=== PATIENT | male | born 1960 | race Caucasian/White ===

== ENCOUNTER 2019-12-23 08:18 | Emergency (ER) | payer BC, SELFPAY ==
--- NOTE | 2019-12-23 08:25 | ED.ALLEREA ---
HPI - Allergic Reaction General Chief complaint: Skin/Abscess/Foreign Body Stated complaint: allergic reaction Time Seen by Provider: 12/23/19 08:33 Source: patient and RN notes reviewed Mode of arrival: ambulatory Limitations: no limitations History of Present Illness HPI narrative: 59-year-old male presents with concern for itching, facial itching, facial swelling that started 3 days ago. Reports scattered rash. Reports he was clearing weeds on and the rash started after that. Reports she has had a history of reaction to poison emilia. He denies any lip swelling, tongue swelling, difficulty swallowing, difficulty breathing, nausea, vomiting, diarrhea, fever. Reports his eyes are very itchy, denies drainage. Reports taking Benadryl 50 mg every 4-6 hours with no relief MD complaint: other (Pruritus) Related Data Home Medications Medication Instructions Recorded Confirmed aspirin 81 mg tablet,delayed 81 mg PO DAILY 04/12/19 09/24/19 release cyanocobalamin (vitamin B-12) 2,500 mcg PO DAILY 04/12/19 09/24/19 2,500 mcg tablet Allergies Allergy/AdvReac Type Severity Reaction Status Date / Time No Known Allergies Allergy Unverified 02/28/14 09:45 Review of Systems Review of Systems: Narrative: CONSTITUTIONAL: Denies malaise, chills, sweats, or fever. EYES: Denies visual changes, redness, or discharge. Reports itchy eyes ENT: Denies swollen tongue, lips, difficulty swallowing CARDIOVASCULAR: Denies chest pain, palpitations, or edema. RESPIRATORY: Denies cough or dyspnea. GASTROINTESTINAL: Denies abdominal pain, nausea, vomiting, diarrhea SKIN: Reports generalized itching, facial itching, eye itching, facial swelling, scattered patches of rash MUSCULOSKELETAL: Denies myalgia. All systems reviewed & are unremarkable except as noted in HPI and below PMFSH Past Medical History Medical History (Updated 12/23/19 @ 08:42 by Lindsey Avalos NP) Encounter for prostate cancer screening Encounter for wellness examination in adult Family History Family History (Updated 10/19/18 @ 08:17 by DOCTOR UNKNOWN) Father Diabetes mellitus, Onset Age: 79 Mother Hypertension Family history of kidney disease Family history of chronic obstructive pulmonary disease, Onset Age: 70 Social History Social History Smoking status: Never smoker Alcohol intake: never Comments At time of signature, agree with nursing past medical, surgical, social and family history. There is no relevant family history pertinent to the presenting complaint Exam Narrative: Exam Narrative: GENERAL: Well-appearing, well-nourished, and in no acute distress. HEAD: Normocephalic EYES: PERRLA, conjunctivae clear, sclera clear ENT: Nares clear. Mucous membranes moist. Oropharynx without erythema or lesions. Tonsils not enlarged and without exudate. NECK: Supple. CHEST: No respiratory distress. Clear to auscultation. No bony deformities, no asymmetry. Speaks in full sentences. HEART: Regular rate and rhythm. No murmur heard. SKIN: Warm, dry. Scattered small patches of vesicles noted, face erythematous with mild edema around the cheeks and eyes. No lip swelling, tongue swelling noted NEURO: Alert and oriented x3. PSYCH: Normal mood and affect Course Course Emergency Course: Patient is aware of diagnosis, understands and agrees to treatment plan. Anticipatory guidance given. Patient agrees to follow-up as directed and is aware of reasons to seek care at the emergency department. Portions of this record may have been created with voice recognition software Vital Signs Vital signs: Vital Signs Temperature 97.6 F 12/23/19 08:32 Pulse Rate 75 12/23/19 08:32 Respiratory Rate 16 12/23/19 08:32 Blood Pressure 128/80 12/23/19 08:32 Pulse Oximetry 98 12/23/19 08:32 Temperature 97.6 F 12/23/19 08:32 Pulse Rate 75 12/23/19 08:32 Respiratory Rate 16 12/23/19 08:32 Blood Pressure 128/80
[2019-12-23 08:32] VITALS: BP 128/80; PULSE 75; RESP 16; TEMP 36.4; O2SAT 98
== END 2019-12-23 08:49 | disposition home or self-care (01) ==
PROVIDERS: Emergency Provider Nurse Practitioner; PCP Family Medicine
DX: L25.5 Unspecified contact dermatitis due to plants, except food (principal); I10 Essential (primary) hypertension
CPT/HCPCS: 99213; G0463

== ENCOUNTER 2020-09-03 16:33 | Outpatient (CLI) | payer BC, SELFPAY ==
--- NOTE | ~2020-09-03 | US_ITS ---
EXAMINATION: US venous doppler LE RT EXAM DATE: 09/03/2020 16:58 INDICATION: Right lower extremity pain. TECHNIQUE: Multiple grayscale, color flow and Doppler images of the right lower extremity deep venous system were obtained and reviewed. There is no prior study for comparison. FINDINGS: The right common femoral, femoral and profunda veins demonstrate normal color flow, respira tory variation, augmentation and compressibility. Compressibility, color flow confirmed within the r ight popliteal, posterior tibial, peroneal, and greater saphenous veins. IMPRESSION: 1. No right lower extremity deep venous thrombosis. Reviewed, dictated and finalized at location A.
== END 2020-09-03 16:34 | disposition home or self-care (01) ==
PROVIDERS: PCP Family Medicine; Visit Provider Orthopaedic Surgery
DX: M79.661 Pain in right lower leg (principal); M79.89 Other specified soft tissue disorders
CPT/HCPCS: 93971

== ENCOUNTER 2020-10-20 12:46 | Outpatient (CLI) | payer BC, SELFPAY ==
--- NOTE | ~2020-10-20 | US_ITS ---
EXAMINATION: US venous doppler LE RT DATE: 10/20/2020 13:25 INDICATION: Right lower limb pain TECHNIQUE: Grayscale ultrasound images without and with compression and Doppler ultrasound images of the right lower extremity veins were obtained. COMPARISON: None. FINDINGS: The visualized portions of right common femoral vein, profunda (deep) femoral vein, femoral vein, pop liteal vein, peroneal trunk, posterior tibial veins, peroneal veins, gastrocnemius vein and greater s aphenous vein outflow are patent. Noncompressible superficial thrombus in the right greater saphenous vein immediately above and below the right knee. The more distal right greater saphenous vein at the calf is patent and compressible. IMPRESSION: 1. No deep venous thrombosis in the right lower limb. 2. Superficial venous thrombosis in the right greater saphenous vein immediately above and below the right knee. Reviewed, dictated and finalized at location A. IMPRESSION: 1. No deep venous thrombosis in the right lower limb. 2. Superficial venous thrombosis in the right greater saphenous vein immediatel y above and below the right knee.
== END 2020-10-20 12:47 | disposition home or self-care (01) ==
PROVIDERS: PCP Family Medicine; Visit Provider Orthopaedic Surgery Sports Medicine
DX: I82.812 Embolism and thrombosis of superficial veins of left lower extremity (principal)
CPT/HCPCS: 93971

== ENCOUNTER 2020-11-04 10:46 | Outpatient (CLI) | payer BC, SELFPAY ==
--- NOTE | ~2020-11-04 | US_ITS ---
EXAMINATION: US venous doppler LE RT DATE: 11/04/2020 11:43 INDICATION: Embolism and thrombosis of superficial veins of right lower extremity. TECHNIQUE: Grayscale ultrasound images without and with compression and Doppler ultrasound images of the right lower extremity veins were obtained. COMPARISON: Ultrasound 10/20/2020 FINDINGS: The visualized portions of right common femoral vein, profunda (deep) femoral vein, femoral vein, pop liteal vein, peroneal veins, and posterior tibial veins are patent. There is thrombus in right greate r saphenous vein inferior to the knee. IMPRESSION: 1. No deep venous thrombosis. 2. Superficial vein thrombosis involving greater saphenous vein with interval improvement in distribu tion. Reviewed, dictated and finalized at location A. IMPRESSION: 1. No deep venous thrombosis. 2. Superficial vein thrombosis involving greater saphenous vein with interval i mprovement in distribution.
== END 2020-11-04 10:47 | disposition home or self-care (01) ==
PROVIDERS: PCP Family Medicine; Visit Provider Family Medicine
DX: I82.811 Embolism and thrombosis of superficial veins of right lower extremity (principal)
CPT/HCPCS: 93971

== ENCOUNTER 2021-05-25 14:09 | Outpatient (CLI) | payer BC, SELFPAY ==
[2021-05-25 15:20] LABS: Basophils Percent Auto 0.4 % (0.2-1.2); Eosinophils Absolute Auto 0.3 K/mm3 (0-0.3); Eosinophils Percent Auto 3.1 % (0-4.4); Hematocrit 42.8 % (42.0-52.0); Hemoglobin 15.2 g/dL (14.0-18.0); Immature Granulocyte Absolute 0.02 K/mm3 (0.00-0.031); Immature Granulocyte Percent A 0.2 % (0-0.5); Lymphocytes Absolute Auto 2.09 K/mm3 (0.9-3.2); Lymphocytes Percent Auto 25.8 % (18.3-44.2); Mean Corpuscular HGB Conc 35.5 g/dl (32-36); Mean Corpuscular Hemoglobin 31.9 pg (26-34); Mean Corpuscular Volume 89.7 fl (80-100); Mean Platelet Volume 10.1 fl (7.4-10.4); Monocytes Absolute Auto 0.7 K/mm3 (0.1-0.6); Monocytes Percent Auto 8.1 % (2.6-8.5); Neutrophils Absolute Auto 5.1 K/mm3 (1.3-6.7); Neutrophils Percent Auto 62.4 % (45.5-73.1); Platelet Count Result 233 k/mm3 (150-375); Red Blood Count 4.77 M/mm3 (4.6-6.20); Red Cell Distribution Width 12.4 % (11.5-14.5); White Blood Count 8.1 K/mm3 (4.5-10.0)
[2021-05-25 15:35] LABS: Albumin Level 4.7 g/dL (3.5-5.1); Anion Gap 8 mmol/L (8-16); Blood Urea Nitrogen 17 mg/dL (9-20); Carbon Dioxide 26 mmol/L (22-30); Chloride 97 mmol/L (98-107); Estimated Glomerular Filt Rate 56; Glucose 98 mg/dL (65-110); Potassium 4.2 mmol/L (3.4-5.0); Sodium 131 mmol/L (137-145)
[2021-05-25 15:40] LABS: Urine Cotinine NEGATIVE
== END 2021-05-25 14:10 | disposition home or self-care (01) ==
LOC: ANHSURGERY 14:11
PROVIDERS: PCP Family Medicine; Visit Provider Orthopaedic Surgery
DX: M17.11 Unilateral primary osteoarthritis, right knee (principal); Z01.818 Encounter for other preprocedural examination
CPT/HCPCS: 80048; 80307; 82040; 85025; 87070

== ENCOUNTER 2021-06-08 00:36 | Day surgery (SDC) | payer BC, SELFPAY ==
[2021-05-25 14:18] VITALS: BMI 38.5
--- NOTE | 2021-05-25 14:41 | PC.NURSE ---
Addendum entered by Soila Murillo RN 05/25/21 15:28: TOTAL JOINT CLASS 06/03/21 AT 10 AM AT [facility] Original Note: Report to the Outpatient Waiting Room, entrance under the green pavilion located off [facility], at time _0600 on date __06/08/21 . OR Time: __729 . - You and your visitor will be asked a series of questions to screen for COVID 19 for your protection. - A mask is required within the hospital. - Only one visitor is allowed at this time. Patient visitors will be guided where to wait when not with patient. Preoperative COVID Testing Requirements: No COVID Test needed if: (proof is required; if not received patient will have Rapid Test prior to entry) - Patient has received COVID Vaccine at least 14 days prior to procedure date or - Patient has positive COVID test result within last 90 days of surgery date. COVID Test needed if above criteria is not met If not COVID vaccinated a COVID test must be conducted within 72 hours of surgery and patient is asked to isolate self from time of testing until procedure. You will go to the [facility] for your COVID testing. The [facility] Testing site is located at the corner of [address] [facility]. You will only be called if COVID results are positive and your surgeon may reschedule your elective surgery date. Patients may have clear liquids (water, carbonated beverages, clear teas, apple juice) until 3 hours prior to surgery with a maximum of 20 ounces. - No food from midnight until time of surgery - Infants may have breast milk until 4 hours before surgery, infant formula 6 hours prior to surgery. - Children will be allowed to drink immediately following surgery. If applicable, please bring a bottle or sippy cup to assist with drinking. Juice, water, soda, and popsicles are readily available. For infants on formula, please bring formula the day of surgery. Pacifiers are allowed. Take the following medications with a SIP of water the morning of surgery: ___ESCITALOPRAM Medications to discontinue per physician ASPIRIN 7 DAYS PRE OP, ALL VITAMINS AND SUPPLEMENTS 3 DAYS PRE OP Date to take last dose__ASPIRIN 05/31/21 ALL VITAMINS 06/04/21 Please no make-up, nail taiwanese, hairspray, perfume, deodorant, or body powder the day of surgery. No jewelry (including any body piercings) or valuables the day of surgery, leave them at home. Please take a shower or bath the night before, or the morning of, surgery with an antibacterial soap. Wear comfortable, loose fitting clothing. Children are encouraged to wear pajamas. - Jewelry must be removed prior to entering the operating room. Rings and piercings that are not removed may be cut off. - The hospital will not accept responsibility for valuables. - Please leave all valuables, including medications, at home the day of surgery. If you are going home after surgery, a licensed racing driver must drive you home. - NO public transportation without another adult. - We recommend that an adult stay with you for 24 hours following discharge. - We also recommend that you do not drive, make important decision, drink alcoholic beverages, or take any drugs that were not prescribed by your health care provider for at least 24 hours after your discharge time. For Pediatric surgeries, we recommend two adults accompany the child home (only one inside the building at this time). Follow any additional instructions given to you from your surgeon. VERBAL instructions given to __PATIENT and asked if any additional questions and then verbalized understanding. Patient advised to call surgeon office or pre surgery nurse liaison [phone] if any additional questions.
[2021-05-25 15:09] VITALS: BP 129/78; PULSE 71; RESP 16; TEMP 37.3; O2SAT 97
--- NOTE | 2021-06-05 11:43 | PM.IMHP ---
H&P: HPI History of Present Illness Date/Time: 06/05/21 11:43 60-year-old male patient of Dr. Puckett who presents today for a right total knee arthroplasty. He has been having pain in both of his knees for years. He has been treating this nonsurgically for as long as possible. He has been taking [id number] anti-inflammatories on a daily basis without improvement of his symptoms. He has severe medial compartment and severe patellofemoral arthritis in the right knee. He has reached a point where he feels he is ready to proceed with total knee arthroplasty rather continue nonsurgical treatment. Chief Complaint: Right knee DJD Review of Systems Review of Systems: All systems reviewed & are unremarkable except as noted in HPI and below PMFSH Past Medical History Medical History Acute superficial venous thrombosis of right lower extremity Arthritis Chronic depression Degenerative arthritis of knee, bilateral Encounter for prostate cancer screening PSA 2.4 03/26/2021, increased from 1.9. Encounter for wellness examination in adult Fatigue Hypertension Mixed hyperlipidemia (03/26/21) total cholesterol 179, triglycerides 354, HDL 31 and LDL 89 on 03/26/2021 Renal insufficiency renal function normal on 03/26/2021 with BUN 25, creatinine 1.1, and GFR 73 Symptomatic varicose veins of both lower extremities Umbilical hernia without obstruction and without gangrene Surgical History Surgical History H/O shoulder surgery right shoulder Family History Family History Father Diabetes mellitus, Onset Age: 79 Mother Hypertension Family history of kidney disease Family history of chronic obstructive pulmonary disease, Onset Age: 70 Social History Social History Smoking status: Never smoker Additional smoking assessment comments: DENIES ANY FORM OF TOBACCO USE Alcohol intake: current 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[facility], 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 Gender identity (if verbalized by the patient): Male Spiritual care concerns: No Meds Home Medications and Allergies Home Medications Medication Instructions Recorded Confirmed Type cyanocobalamin (vitamin B-12) 2,500 mcg PO 3XW tablet 02/25/20 05/25/21 History 2,500 mcg tablet escitalopram oxalate 10 mg tablet 10 mg PO DAILY #90 tablet 06/25/20 05/25/21 Rx hydrochlorothiazide 25 mg tablet 25 mg PO DAILY #90 tablet 11/10/20 05/25/21 Rx lisinopril 40 mg tablet 40 mg PO DAILY #90 tablet 11/10/20 05/25/21 Rx hydrocodone 5 mg-acetaminophen 325 1 tablet PO Q6H PRN #28 tablet 11/24/20 05/25/21 Rx mg tablet cholecalciferol (vitamin D3) 125 5,000 unit PO DAILY cap 04/01/21 05/25/21 History mcg (5,000 unit) capsule aspirin [Adult Low Dose Aspirin] 81 mg PO DAILY 05/25/21 05/25/21 History Allergies Allergy/AdvReac Type Severity Reaction Status Date / Time No Known Allergies Allergy Unverified 05/25/21 14:19 Exam Narrative: 60-year-old male alert pleasant. He is 5 ft 10 to 180 lb. His BMI is 40. His right knee has a moderate effusion, range of motion is from 3-130 degrees. Moderate medial pseudolaxity to valgus stress. Mild to moderate tenderness over the medial joint line. Moderate pain with patellofemoral grind. Hip range of motion on the right is full without discomfort. Negative Stinchfield maneuver. Normal quad strength. No numbness or tingling in the right lower extremity. 2+ dorsalis pedis pulse. Resp: Auscultation: clear to auscultation bilaterally Cardio: Rate: regular rate Rhythm: regular rhythm Assessment and Plan Additional Plan 60-year-old male who has severe medial compartment and patellofemoral arthritis in the right knee with continued symptoms on a daily basis. He has faile
--- NOTE | 2021-06-05 14:15 | WPDANESEPPF ---
Anes - Initial Pre Proc Eval Procedure: Operation Date: 06/08/21 07:30 Proposed Procedures p Right Total Knee Arthroplasty, Left Knee Cortisone Injection - Luis Kincaid MD Date/Time: 06/05/21 14:15 Surgeon: Luis Kincaid MD Pre Op Diagnosis: OA right knee Patient Data Age: 60 Gender: M Height: 1.83 m Weight: 128.9 kg Last Vital Signs Temp 99.2 F 05/25/21 15:09 Pulse 71 05/25/21 15:09 Resp 16 05/25/21 15:09 BP 129/78 05/25/21 15:09 Pulse Ox 97 05/25/21 15:09 Allergies Allergy/AdvReac Type Severity Reaction Status Date / Time No Known Allergies Allergy Unverified 06/08/21 07:08 Home Medications Medication Instructions Recorded Confirmed Type cyanocobalamin (vitamin B-12) 2,500 mcg PO 3XW tablet 02/25/20 06/08/21 History 2,500 mcg tablet escitalopram oxalate 10 mg tablet 10 mg PO DAILY #90 tablet 06/25/20 06/08/21 Rx hydrochlorothiazide 25 mg tablet 25 mg PO DAILY #90 tablet 11/10/20 06/08/21 Rx lisinopril 40 mg tablet 40 mg PO DAILY #90 tablet 11/10/20 06/08/21 Rx hydrocodone 5 mg-acetaminophen 325 1 tablet PO Q6H PRN #28 tablet 11/24/20 06/08/21 Rx mg tablet cholecalciferol (vitamin D3) 125 5,000 unit PO DAILY cap 04/01/21 06/08/21 History mcg (5,000 unit) capsule aspirin [Adult Low Dose Aspirin] 81 mg PO DAILY 05/25/21 06/08/21 History Patient hx anesthesia problems: none Family hx anesthesia problems: none Results Review: All pre-operative results and documents have been reviewed as part of the pre-operative evaluation. [facility] Past Medical History Medical History Acute superficial venous thrombosis of right lower extremity Arthritis Chronic depression Degenerative arthritis of knee, bilateral Encounter for prostate cancer screening PSA 2.4 03/26/2021, increased from 1.9. Encounter for wellness examination in adult Fatigue Hypertension Mixed hyperlipidemia (03/26/21) total cholesterol 179, triglycerides 354, HDL 31 and LDL 89 on 03/26/2021 Renal insufficiency renal function normal on 03/26/2021 with BUN 25, creatinine 1.1, and GFR 73 Symptomatic varicose veins of both lower extremities Umbilical hernia without obstruction and without gangrene Surgical History Surgical History H/O shoulder surgery right shoulder Family History Family History Father Diabetes mellitus, Onset Age: 79 Mother Hypertension Family history of kidney disease Family history of chronic obstructive pulmonary disease, Onset Age: 70 Social History Social History Smoking status: Never smoker Additional smoking assessment comments: DENIES ANY FORM OF TOBACCO USE Alcohol intake: current Living arrangements: with family 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[facility], 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 Informed Consent: The patient's anesthetic plan and its attendant risks and benefits were discussed with the patient/family/POA. Questions were solicited and answers provided to the satisfaction of the patient/family/POA.
[2021-06-08] VITALS (14 sets, daily range): BP systolic 136–168; BP diastolic 74–98; PULSE 68–101; RESP 9–16; TEMP 36.3–37.4; O2SAT 89–98; BMI 38.2
--- NOTE | ~2021-06-08 | XR_ITS ---
EXAMINATION: XR knee RT 2V DATE: 06/08/2021 11:20 INDICATION: Right knee arthroplasty. Postop. TECHNIQUE: 2 views of right knee were obtained. COMPARISON: Right knee radiographs 09/03/2020 FINDINGS: There is a total right knee arthroplasty with patellar resurfacing in near-anatomic alignme nt. No fracture. There is gas in the knee joint and soft tissues, consistent with recent surgery. The re is a small knee joint effusion. IMPRESSION: 1. Total right knee arthroplasty in near-anatomic alignment. Reviewed, dictated and finalized at location B. 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
[2021-06-08] MEDS: LACTATED RINGERS 1,000 ML 30 ML IV CONT ×2 (07:15→11:21)
[2021-06-08] MEDS: ACETAMINOPHEN 500 MG TABLET 1000 MG PO ×3 (07:15→23:38)
[2021-06-08 07:16] LABS: Sodium 139 mmol/L (137-145)
--- NOTE | 2021-06-08 07:17 | WPDHPUPDATE1 ---
History and Physical Update Update Date/Time: 06/08/21 07:17 History and Physical has been reviewed, including an updated exam of the patient. There are NO changes in the patient's condition. Risks, benefits, and alternatives have been discussed and questions answered. Patient agrees to proceed with procedure.And he would like cristiano shot in left knee while in surgery for severe oa left knee.
[2021-06-08] MEDS: ceFAZolin 3 GM/D5W 100 ML 100 ML IVPB (07:33)
[2021-06-08] MEDS: LIDOCAINE HCL 1% PF 30 ML VIAL INFILTRATE (07:46)
[2021-06-08] MEDS: methylPREDNISolone ACETATE 80 MG/ML VIAL IM (07:46)
[2021-06-08] MEDS: ceFAZolin SODIUM 1 GM VIAL 3 GM IRRIGATION (08:08)
[2021-06-08] MEDS: GENTAMICIN BONE CEMENT REFOBACIN 1 EACH TOPICAL (09:35)
[2021-06-08] MEDS: ceFAZolin SODIUM 1 GM VIAL 2 GM IV PUSH (10:26)
[2021-06-08] MEDS: TRANEXAMIC ACID 1,000 MG/10 ML AMPUL 1000 MG TOPICAL (10:27)
--- NOTE | 2021-06-08 11:00 | W.PM.PROC2 ---
Procedure Note - Detailed Date of Procedure 06/08/21 Pre-op Diagnosis OA right knee, osteonecrosis medial tibial plateau OA left knee Extreme obesity with BMI of 40. Post-op Diagnosis same Procedure Performed Cortisone injection left knee, right total knee arthroplasty Surgeon Luis Kincaid MD Piece [employer] Jocelyne Anesthesia general Findings Osteonecrosis posterior medial aspect medial tibial plateau right knee. Description of Procedure Patient was brought to the operating room general anesthesia was administered. He received 2 g vancomycin 3 g Ancef preoperatively. After ChloraPrep prep, 80 mg of Depo-Medrol and 3 cc of 1% lidocaine were injected into the left knee. The right knee was prepped draped usual fashion. Of There is extra difficulty with the right knee due to his extreme obesity with weight of 280 lb. This added approximately 40 minutes the procedure. Under anesthesia he had full extension with a negative bounce. He had some varus valgus laxity in extension as well. Limb was exsanguinated tourniquet elevated to 300 mmHg. An 8 in longitudinal midline incision was used in a standard parapatellar arthrotomy utilized. Infrapatellar and suprapatellar fat pads were excised the question of synovectomy carried out. The patella was scalloped eburnated bone lateral facet. Measured 25 mm in thickness. This was cut to 16.5 mm. A protector cap was applied. Bone quality was excellent. A guide joanne was inserted down the femoral canal after aspiration of canal contents in using the 6 degree valgus bushing, 9 mm of bone removed the distal femur. This removed only about 6 mm from lateral side. Next the tibial plateau was cut. We did not try to cut down to the base of the posteromedial tibial defect but try to make a skim cut remove a mm of the low point of the intact medial tibial plateau and the she moved about 11 mm of bone laterally. We tried to make the cut at approximately 1 degree of varus to avoid excessive bone removal laterally. The tibial plateau was inspected and the fibrocartilage filling the ostia necrotic defects were carefully curetted. This involved the posterior medial 1/5 of the surface area and I felt that this area would be underneath the posteromedial aspect of the tibial tray and the of diminished support and therefore I elected to use a an 80 mm cemented stem extension. With the meniscal remnants excised the PCL recessed, the lateral space measured 14 mm at 90? medial space 11. The femoral sizing guide was applied set at 4? of external rotation which matched Whitesides line the posterior referencing pinholes were placed. The 70 cutting block was applied AP and chamfer cuts made and the 70 fit line to line anterior posterior was about 2 mm narrower than the with the condyles distally. Seem like a very good fit. The tibia was sized to the 79 vanguard which fit line to line posterolaterally to anteromedially at the proper rotation without overhang. This was punched with the 80 mm by 10 mm diameter stemmed and punch. On trialing with the we found that there was a fairly positive bounce with the 12 and just a little bit of play at 90?. In extension with the 12 the knee opened up 2 mm medially 1 mm laterally. At 90? medial side opened up 2-3 mm lateral side 1 2 mm. The trial components removed and the femoral trial reapplied and posterior femoral a bone proximal to the condyles was removed with a curved osteotome and a conservative posterior central capsular release was performed and we trialed again this time with the 13 and at 90? this had ideal stability opening up 1 mm laterally to varus stress to medially and with the arthrotomy approximated with a towel clip this made the medial side snug to anterior drawer at 90? as well with gravity flexion all the way back however there was a positive bounce with the 13. We put the tourniquet down at approximately 90 minutes while we were assessing this and I elected to remove an addit
--- NOTE | 2021-06-08 14:13 | PC.NURSE ---
This patient, Joe Vega, was admitted to [facility] Surgery-2. Patient/family oriented to hospital policies and general routines including ID bracelet, bed and alarms, visiting hours, pain management, procedures, bathroom and other care routines, personal items, smoking policy, room service/diet, and visiting hours. Information on how to activate the Rapid Response Team has been discussed. Patient/Family are encouraged to report perceived risks to care and to ask questions if they do not understand what they are told or what they should do.
[2021-06-08] MEDS: oxyCODONE HCL (*CRX) 5 MG TAB IR PO ×3 (15:07→20:50)
[2021-06-08] MEDS: SENNA/DOCUSATE SODIUM TABLET 2 TAB PO (17:21)
[2021-06-08] MEDS: FAMOTIDINE 20 MG TABLET PO (20:50)
[2021-06-09] MEDS: oxyCODONE HCL (*CRX) 5 MG TAB IR PO ×4 (02:47→09:39)
[2021-06-09 05:01] LABS: Basophils Percent Auto 0.1 % (0.2-1.2); Immature Granulocyte Absolute 0.04 K/mm3 (0.00-0.031); Immature Granulocyte Percent A 0.3 % (0-0.5); Lymphocytes Absolute Auto 0.79 K/mm3 (0.9-3.2); Lymphocytes Percent Auto 6.6 % (18.3-44.2); Mean Corpuscular HGB Conc 34.3 g/dl (32-36); Mean Corpuscular Hemoglobin 31.7 pg (26-34); Mean Corpuscular Volume 92.6 fl (80-100); Mean Platelet Volume 9.9 fl (7.4-10.4); Monocytes Absolute Auto 0.9 K/mm3 (0.1-0.6); Monocytes Percent Auto 7.1 % (2.6-8.5); Neutrophils Absolute Auto 10.3 K/mm3 (1.3-6.7); Neutrophils Percent Auto 85.9 % (45.5-73.1); Platelet Count Result 217 k/mm3 (150-375); Red Blood Count 3.78 M/mm3 (4.6-6.20)
[2021-06-09 05:13] LABS: Anion Gap 9 mmol/L (8-16); Blood Urea Nitrogen 18 mg/dL (9-20); Calcium 8.8 mg/dL (8.4-10.2); Carbon Dioxide 24 mmol/L (22-30); Chloride 101 mmol/L (98-107); Estimated CRCL calculation 88 ml/min; Estimated Glomerular Filt Rate > 60; Glucose 184 mg/dL (65-110); Potassium 4.1 mmol/L (3.4-5.0); Sodium 134 mmol/L (137-145)
[2021-06-09 06:00] VITALS: BP 140/75; PULSE 78; RESP 20; O2SAT 98
--- NOTE | 2021-06-09 06:12 | PM.PNORT ---
Subjective Subjective Date/Time Seen: 06/09/21 06:12 Postop day 1 patient is alert pleasant. His vital signs are stable. His dressing is dry and intact. Neurovascularly he is intact. He was up walking yesterday with physical therapy and comfortable. He is having more pain this morning particularly in the thigh. Soft tissue block is worn off. Make sure that he is getting 2 oxycodone at a time to help control pain. Morning labs are noted. Overall patient is doing well. We will plan to have him work with therapy this morning and discharge him home if he continues to do well. Objective Data Vital Signs Vital Signs: Vital Signs - 24 hr 06/08/21 06:30 06/08/21 11:25 06/08/21 11:40 Temperature 36.6 C 37.4 C Pulse Rate 68 101 H 99 Respiratory Rate 16 9 L 11 L Blood Pressure 151/74 H 136/81 165/94 H Pulse Oximetry 98 90 97 06/08/21 11:55 06/08/21 12:10 06/08/21 12:25 Temperature Pulse Rate 97 93 90 Respiratory Rate 12 10 L 12 Blood Pressure 168/98 H 166/94 H 155/91 H Pulse Oximetry 96 98 97 06/08/21 12:40 06/08/21 12:45 06/08/21 12:55 Temperature Pulse Rate 84 85 Respiratory Rate 12 12 Blood Pressure 153/87 H 151/88 H Pulse Oximetry 90 89 L 95 06/08/21 13:10 06/08/21 13:25 06/08/21 14:00 Temperature 36.3 C L Pulse Rate 85 86 77 Respiratory Rate 10 L 16 14 Blood Pressure 150/87 H 150/88 H 141/85 H Pulse Oximetry 96 98 95 06/08/21 14:42 06/08/21 22:00 Temperature Pulse Rate 90 Respiratory Rate 14 Blood Pressure 151/77 H Pulse Oximetry 96 97 Intake/Output Intake/Output: Intake & Output 06/06/21 06/07/21 06/08/21 06/09/21 23:59 23:59 23:59 23:59 Intake Total 2049 Output Total Balance 2049 - Meds/Results Medications: Active Medications Generic Name Dose Route Start Last Admin Trade Name Freq PRN Reason Stop Dose Admin Acetaminophen 1,000 mg 06/08/21 13:46 06/08/21 23:38 Acetaminophen 500 Mg Tablet PO 1,000 mg Q6HR MIRELA Administration Apixaban 2.5 mg 06/09/21 09:00 Apixaban 2.5 Mg Tablet PO 06/20/21 21:01 Q12HR [facility] Bisacodyl 10 mg 06/08/21 13:46 Bisacodyl 10 Mg Suppository RECTAL DAILY PRN Constipation Celecoxib 200 mg 06/09/21 09:00 Celecoxib 200 Mg Capsule PO DAILY MIRELA Cephalexin HCl 500 mg 06/09/21 12:00 Cephalexin 500 Mg Capsule PO Q6HR [facility] Diphenhydramine HCl 25 mg 06/08/21 13:46 Diphenhydramine Hcl Inj 50 Mg/Ml Vial IV PUSH Q6H PRN Itching Famotidine 20 mg 06/08/21 21:00 06/08/21 20:50 Famotidine 20 Mg Tablet PO 20 mg Q12HR MIRELA Administration Hydrochlorothiazide 25 mg 06/09/21 09:00 Hydrochlorothiazide 25 Mg Tablet PO DAILY MIRELA Vancomycin HCl 1,000 mg in 250 mls @ 250 mls/hr 06/08/21 19:00 06/08/21 18:28 Vancomycin 1,000 Mg/D5w 250 Ml IVPB 06/09/21 07:59 250 mls/hr Q12H [facility] Administration Cefazolin Sodium 1 gm in 50 mls @ 100 mls/hr 06/08/21 15:00 06/08/21 23:30 Ancef 1 Gm/D5w 50 Ml Pm IVPB 06/09/21 07:29 Infused Q8H [facility] Infusion Magnesium Hydroxide 30 ml 06/08/21 13:46 Magnesium Hydroxide Susp 30 Ml Udc PO BID PRN Constipation Naloxone HCl 0.1 mg 06/08/21 13:46 Naloxone Hcl 0.4 Mg/Ml Vial IV PUSH Q2M PRN Opiate Reversal Ondansetron HCl 4 mg 06/08/21 13:46 Ondansetron Inj 4 Mg/2 Ml Vial IV PUSH Q4H PRN Nausea And Vomiting Oxycodone HCl 5 mg 06/08/21 13:46 Oxycodone Hcl (*Crx) 5 Mg Tab Ir PO Q4H PRN Pain Rated 4-6 Oxycodone HCl 5 mg 06/08/21 13:46 06/09/21 02:47 Oxycodone Hcl (*Crx) 5 Mg Tab Ir PO 5 mg Q4HR MIRELA Administration Polyethylene Glycol 17 gm 06/09/21 09:00 Polyethylene Glycol 3350 17 Gm Powd.Pack PO QAM MIRELA Senna/Docusate Sodium 2 tab 06/08/21 17:00 06/08/21 17:21 Senna/Docusate Sodium Tablet PO 2 tab BID MIRELA Administration Radiology Results: ITS Impressions Knee X-Ray 06/08/21 11:31 IMPRESSION
[2021-06-09] MEDS: ACETAMINOPHEN 500 MG TABLET 1000 MG PO (06:16)
--- NOTE | 2021-06-09 06:18 | PM.DS ---
DS: Admitting Diagnosis Discharge Date 06/08/2021 Admitting Diagnosis Right knee DJD DS: Summary Hospital Course Hospital Course: Stable Time Spent with Patient Time attestation: Total time spent providing and/or coordinating discharge services: 60-year-old male who underwent right total knee arthroplasty on 06/08/2021. Underwent procedure without any complications postoperatively he has been afebrile vital signs been stable. Neurovascularly is intact. Pain is controlled on scheduled Tylenol as well as Celebrex once a day he is also on oxycodone for pain. He is also on MiraLax and Senokot for constipation. He is also going home on Keflex for 10 day course postoperatively. Patient was advised to keep leg elevated at home but his exercises on a regular basis. He has outpatient therapy starting on . He was advise any questions or concerns he is to call the office otherwise we will see him at his appointment date. DS: Data Data Completed and Pending Labs on day of discharge: Labs from last 24 hours 06/09/21 06/09/21 06/08/21 04:27 04:27 06:59 WBC 12.0 H RBC 3.78 L Hgb 12.0 L D Hct 35.0 L MCV 92.6 MCH 31.7 MCHC 34.3 RDW 12.0 Plt Count 217 MPV 9.9 Immature Gran % (Auto) 0.3 Neut % (Auto) 85.9 H Lymph % (Auto) 6.6 L [place] % (Auto) 7.1 Eos % (Auto) 0.0 Baso % (Auto) 0.1 L Lymph # (Auto) 0.79 L [place] # (Auto) 0.9 H Eos # (Auto) 0.0 Baso # (Auto) 0.0 Abs Immat Gran (auto) 0.04 H Absolute Neuts (auto) 10.3 H Absolute Nucleated RBC 0.0 Nucleated RBC % 0.0 Sodium 134 L 139 Potassium 4.1 Chloride 101 Carbon Dioxide 24 Anion Gap 9 BUN 18 Creatinine 1.10 Estim Creat Clear Calc 88 Estimated GFR > 60 Glucose 184 H Calcium 8.8 Blood Type Antibody Screen 06/08/21 06:59 WBC RBC Hgb Hct MCV MCH MCHC RDW Plt Count MPV Immature Gran % (Auto) Neut % (Auto) Lymph % (Auto) [place] % (Auto) Eos % (Auto) Baso % (Auto) Lymph # (Auto) [place] # (Auto) Eos # (Auto) Baso # (Auto) Abs Immat Gran (auto) Absolute Neuts (auto) Absolute Nucleated RBC Nucleated RBC % Sodium Potassium Chloride Carbon Dioxide Anion Gap BUN Creatinine Estim Creat Clear Calc Estimated GFR Glucose Calcium Blood Type A Negative Antibody Screen Negative Discharge Plan Discharge Patient Disposition: Home, Self-Care Discharge Instructions: LUIS KINCAID M.D [facility], [place] [address] [place] [address] POST-OPERATIVE DISCHARGE INSTRUCTIONS TOTAL KNEE ARTHROPLASTY 1. When resting, lie on back with leg elevated above hear to minimize swelling. Significant swelling could indicate a blood clot and if this occurs call the office (or go to the ER) to have a venous ultrasound. 2. Do exercise 5 times a day. 3. Do not sit with leg down except for meals. 4. Wound Care: Nursing will give additional dressings at discharge. Patient to change dressing at home 1 week from surgery, then maintain until seen in office. 5. May shower with dressing in place. 6. Follow weight bearing status instructions. Stand Alone Forms: General Discharge Instructions Follow-up/Referrals: Luis Kincaid MD [Physician] - Keep Reg. Scheduled Appt. Discharge Medications: New acetaminophen 500 mg Tablet 1,000 mg PO Q6HR Qty: 90 RF: 0 Eliquis 2.5 mg Tablet 2.5 mg PO Q12HR Qty: 27 RF: 0 celecoxib [Celebrex] 200 mg Capsule 200 mg PO DAILY Qty: 30 RF: 0 polyethylene glycol 3350 [Miralax] 17 gram Powder In Packet 17 g PO QAM Qty: 30 RF: 0 sennosides-docusate sodium [Senokot-S] 8.6-50 mg Tablet 2 tab PO BID Qty: 60 RF: 0 cephalexin 500 mg Capsule 500 mg PO Q6HR Qty: 44 RF: 0 oxycodone 5 mg Tablet 5 mg PO Q4HR Qty: 40 RF: 0 Continued cyanocobalamin (vitamin B-12) 2,500 mcg tablet
--- NOTE | 2021-06-09 07:13 | WPDANESPN ---
Anes - Prog Note Post-Op Date/Time: 06/09/21 07:13 Cardiovascular status: normal Respiratory status: normal and other (O2 weaned off.) Airway patency: baseline and other Mental status: baseline Post-Op hydration status: normal Vital Signs: Last Vital Signs Temp 97.4 F L 06/08/21 14:00 Pulse 90 06/08/21 22:00 Resp 14 06/08/21 22:00 BP 151/77 H 06/08/21 22:00 Pulse Ox 97 06/08/21 22:00 Pain Score (VAS): 0-4 I/O: Intake & Output 06/08/21 06/08/21 06/09/21 15:59 23:59 07:59 Intake Total 1600 450 Output Total 600 Balance 1600 450 -600 Laboratory Tests 06/09/21 04:27 06/09/21 04:27 06/08/21 06/08/21 06/09/21 06:59 06:59 04:27 WBC 12.0 H RBC 3.78 L Hgb 12.0 L D Hct 35.0 L MCV 92.6 MCH 31.7 MCHC 34.3 RDW 12.0 Plt Count 217 MPV 9.9 Immature Gran % (Auto) 0.3 Neut % (Auto) 85.9 H Lymph % (Auto) 6.6 L [place] % (Auto) 7.1 Eos % (Auto) 0.0 Baso % (Auto) 0.1 L Lymph # (Auto) 0.79 L [place] # (Auto) 0.9 H Eos # (Auto) 0.0 Baso # (Auto) 0.0 Abs Immat Gran (auto) 0.04 H Absolute Neuts (auto) 10.3 H Absolute Nucleated RBC 0.0 Nucleated RBC % 0.0 Sodium 139 Potassium Chloride Carbon Dioxide Anion Gap BUN Creatinine Estim Creat Clear Calc Estimated GFR Glucose Calcium Blood Type A Negative Antibody Screen Negative 06/09/21 04:27 WBC RBC Hgb Hct MCV MCH MCHC RDW Plt Count MPV Immature Gran % (Auto) Neut % (Auto) Lymph % (Auto) [place] % (Auto) Eos % (Auto) Baso % (Auto) Lymph # (Auto) [place] # (Auto) Eos # (Auto) Baso # (Auto) Abs Immat Gran (auto) Absolute Neuts (auto) Absolute Nucleated RBC Nucleated RBC % Sodium 134 L Potassium 4.1 Chloride 101 Carbon Dioxide 24 Anion Gap 9 BUN 18 Creatinine 1.10 Estim Creat Clear Calc 88 Estimated GFR > 60 Glucose 184 H Calcium 8.8 Blood Type Antibody Screen Post-procedural complaints: none Patient Feedback: Patient satisfied with anesthetic care.
[2021-06-09 07:44] VITALS: BP 121/73; PULSE 75; RESP 16; TEMP 36.7; O2SAT 98
[2021-06-09] MEDS: SENNA/DOCUSATE SODIUM TABLET 2 TAB PO (09:38)
[2021-06-09] MEDS: FAMOTIDINE 20 MG TABLET PO (09:38)
[2021-06-09] MEDS: hydroCHLOROthiazide 25 MG TABLET PO (09:38)
[2021-06-09] MEDS: APIXABAN 2.5 MG TABLET PO (09:38)
[2021-06-09] MEDS: polyethylene glycoL 3350 17 GM POWD.PACK PO (09:38)
[2021-06-09] MEDS: CELECOXIB 200 MG CAPSULE PO (09:38)
== END 2021-06-09 11:45 | disposition home or self-care (01) ==
LOC: ANHSURGERY 06:17 → ANHSUROVER 13:48
PROVIDERS: Physician Assistant Surgical; PCP Family Medicine; Visit Provider Orthopaedic Surgery
PROC: (CPT 27447; principal; 2021-06-08 07:30)
DX: M17.0 Bilateral primary osteoarthritis of knee (principal); M89.761 Major osseous defect, right lower leg; E66.9 Obesity, unspecified; Z68.38 Body mass index [BMI] 38.0-38.9, adult; F32.9 Major depressive disorder, single episode, unspecified; M19.90 Unspecified osteoarthritis, unspecified site; I10 Essential (primary) hypertension; E78.2 Mixed hyperlipidemia; N28.9 Disorder of kidney and ureter, unspecified; Z79.82 Long term (current) use of aspirin
CPT/HCPCS: 27447; 20610; 36415; 73560; 80048; 80307; 82040; 84295; 85025; 86850; 86900; 86901; 87070; 97110; 97116; 97161; 97165; 97530; 97535; A9270; C1713; C1776; J0171; J0690; J1040; J1100; J1170; J2250; J2270; J2405; J2704; J2795; J3010; J3370; J7120

== ENCOUNTER 2022-02-18 07:56 | Outpatient (CLI) | payer BC, SELFPAY ==
--- NOTE | ~2022-02-18 | XR_ITS ---
XR thoracic spine 3V DATE: 02/18/2022 08:23 INDICATION: Back pain, right lateral back pain. TECHNIQUE: AP, lateral and swimmer views COMPARISON: None FINDINGS: There is diffuse idiopathic skeletal hyperostosis thoracic spine. The thoracic pedicles are intact. No fracture or bone destruction or dislocation or paraspinal soft t issue thickening is detected. IMPRESSION: Diffuse idiopathic skeletal hyperostosis Reviewed, dictated and finalized at location B.
--- NOTE | ~2022-02-18 | XR_ITS ---
XR lumbar spine 2-3V DATE: 02/18/2022 08:23 INDICATION: Right lateral back pain. No injury. TECHNIQUE: AP, lateral, coned lateral lumbosacral views COMPARISON: None FINDINGS: There is prominent degenerative change at the apophyseal joints in the lower lumbar area wi th associated grade 1 anterolisthesis at L4-5. There is severe degenerative disc disease at L5-S1. There is mild degenerative disc disease at the re mainder of the lumbar spine. No fracture or bone destruction is evident. The included lower thoracic and lumbar pedicles are intac t. Degenerative change at the sacroiliac joints. IMPRESSION: Severe degenerative disc disease at L5-S1; mild degenerative disc disease of the remainde r of the lumbar spine Grade 1 anterolisthesis at L4-5 due to degenerative change at the apophyseal joints Reviewed, dictated and finalized at location B. IMPRESSION: Severe degenerative disc disease at L5-S1; mild degenerative disc d isease of the remainder of the lumbar spine Grade 1 anterolisthesis at L4-5 due to degenerative change at the apophyseal malvin ints
== END 2022-02-18 07:57 | disposition home or self-care (01) ==
PROVIDERS: PCP Family Medicine; Visit Provider Nurse Practitioner Family
DX: M51.37 Other intervertebral disc degeneration, lumbosacral region (principal); M48.14 Ankylosing hyperostosis [Forestier], thoracic region
CPT/HCPCS: 72072; 72100

== ENCOUNTER 2022-04-19 07:57 | Outpatient (CLI) | payer BC, SELFPAY ==
--- NOTE | 2022-04-19 08:57 | ECG_ITS ---
Measurements Intervals [place] Rate: 60 P: 16 CA: 147 QRS: -6 QRSD: 106 T: 1 QT: 397 QTc: 400 Interpretive Statements SINUS RHYTHM BASELINE ARTIFACT- I, II, III, AVR NORMAL ECG NO PREVIOUS ECG AVAILABLE FOR COMPARISON Electronically Signed On 04-19-2022 9:14:01 FINISHING OPERATOR by Carlos Johnson D.O.
[2022-04-19 10:05] LABS: Basophils Percent Auto 0.6 % (0.2-1.2); Eosinophils Absolute Auto 0.3 K/mm3 (0-0.3); Eosinophils Percent Auto 5.3 % (0-4.4); Hematocrit 43.3 % (42.0-52.0); Immature Granulocyte Absolute 0.01 K/mm3 (0.00-0.031); Immature Granulocyte Percent A 0.2 % (0-0.5); Lymphocytes Absolute Auto 1.59 K/mm3 (0.9-3.2); Lymphocytes Percent Auto 33.6 % (18.3-44.2); Mean Corpuscular HGB Conc 34.6 g/dl (32-36); Mean Corpuscular Hemoglobin 31.3 pg (26-34); Mean Corpuscular Volume 90.4 fl (80-100); Mean Platelet Volume 10.1 fl (7.4-10.4); Monocytes Absolute Auto 0.5 K/mm3 (0.1-0.6); Monocytes Percent Auto 9.9 % (2.6-8.5); Neutrophils Absolute Auto 2.4 K/mm3 (1.3-6.7); Neutrophils Percent Auto 50.4 % (45.5-73.1); Platelet Count Result 224 k/mm3 (150-375); Red Blood Count 4.79 M/mm3 (4.6-6.20); Red Cell Distribution Width 12.5 % (11.5-14.5); White Blood Count 4.7 K/mm3 (4.5-10.0)
[2022-04-19 10:22] LABS: Urine Cotinine NEGATIVE
[2022-04-19 10:29] LABS: Hemoglobin A1C 5.5 % (<5.7)
[2022-04-19 10:34] LABS: Albumin Level 4.6 g/dL (3.5-5.1); Anion Gap 10 mmol/L (8-16); Blood Urea Nitrogen 18 mg/dL (9-20); Calcium 9.5 mg/dL (8.4-10.2); Carbon Dioxide 27 mmol/L (22-30); Chloride 101 mmol/L (98-107); Estimated Glomerular Filt Rate > 60; Glucose 96 mg/dL (65-110); Sodium 138 mmol/L (137-145)
== END 2022-04-19 07:58 | disposition home or self-care (01) ==
LOC: ANHSURGERY 08:04
PROVIDERS: PCP Family Medicine; Visit Provider Orthopaedic Surgery
DX: M17.12 Unilateral primary osteoarthritis, left knee (principal); Z01.818 Encounter for other preprocedural examination
CPT/HCPCS: 80048; 80307; 82040; 83036; 85025; 87081; 93005

== ENCOUNTER 2022-05-03 00:37 | Day surgery (SDC) | payer BC, SELFPAY ==
--- NOTE | 2022-04-19 07:57 | PC.NURSE ---
Addendum entered by Sierra Villa RN 04/19/22 08:55: PT NO LONGER TAKING MELOXICAM - MELOXICAM MARKED OUT ON PT INSTRUCTIONS Original Note: PRE-OP INSTRUCTIONS, PLEASE READ CAREFULLY Report to the Outpatient Waiting Room, entrance under the green pavilion located off [facility], at time _0600_ on date _05/03/22_. Planned Procedure Time: _0730_. PACK A SMALL OVERNIGHT BAG AND LEAVE IN THE CAR ALONG WITH YOUR WALKER Time changes happen often and if your time is changed the preop area will call you the afternoon before. - You and your visitor will be asked to self-screen and do not enter if you have any COVID symptoms. - Only one visitor is requested with a max of two and NO children visitors are allowed at this time. - The patient visitor may be requested to leave or wait in car when not with patient due to distancing restrictions. - A mask is optional within the hospital. -VISITING HOURS 8AM-8PM Patients may have clear liquids (water, carbonated beverages, clear teas, apple juice) until 3 hours prior to surgery (0430 AM) with a maximum of 20 ounces. - No food from midnight until time of surgery Take the following medications with a SIP of water the morning of surgery: _ESCITALOPRAM_ Medications to discontinue per DR. SANCHEZ - _ASPIRIN, MELOXICAM 7 DAYS PRIOR TO SURGERY, Date to take last dose 04/25/22_ Medications to discontinue per ANESTHESIA - _VITAMINS/SUPPLEMENTS 3 DAYS PRIOR TO SURGERY, Date to take last dose 04/29/22_ Please no make-up, nail ghanaian, hairspray, perfume, deodorant, or body powder the day of surgery. No jewelry (including any body piercings) or valuables the day of surgery, leave them at home. Please take a shower or bath the night before, or the morning of, surgery with an antibacterial soap. Wear comfortable, loose fitting clothing. - Jewelry must be removed prior to entering the operating room. Rings and piercings that are not removed may be cut off. - The hospital will not accept responsibility for valuables. - Please leave all valuables, including medications, at home the day of surgery. If you are going home after surgery, a licensed [place] driver must drive you home. - NO public transportation without another adult if you receive anesthesia. - We recommend that an adult stay with you for 24 hours following discharge. - We also recommend that you do not drive, make important decision, drink alcoholic beverages, or take any drugs that were not prescribed by your health care provider for at least 24 hours after your discharge time. Follow any additional instructions given to you from your surgeon. If you or anyone in your household have experienced Covid symptoms in the past week, please notify your surgeon or the nurse liaison at the phone number below for possible testing. Instructions given to _PT_and asked if any additional questions and then verbalized understanding. Patient advised to call surgeon office or pre surgery nurse liaison [phone] if any additional questions.
[2022-04-19 08:10] VITALS: BP 122/80; PULSE 66; RESP 20; TEMP 36.8; O2SAT 100; BMI 38.3
--- NOTE | 2022-04-30 12:28 | PM.IMHP ---
H&P: HPI History of Present Illness Date/Time: 04/30/22 12:28 Chief Complaint: Left knee DJD Narrative: 61-year-old male presents today for a left total knee arthroplasty. He has been having pain in this knee for years. He has been getting cortisone injections as well as taking odbe-aby-nbbvzks anti-inflammatories to help control symptoms. His last injection was in November of this year. He got minimal relief from the injection. He has severe lateral compartment osteoarthritis in left knee. Patient has reached the point he feels he is ready to proceed with total knee arthroplasty rather continue nonsurgical treatment Review of Systems Review of Systems: All systems reviewed & are unremarkable except as noted in HPI and below PMFSH Past Medical History Medical History Acute superficial venous thrombosis of right lower extremity Anemia (06/09/21) hemoglobin 12.0 with hematocrit 35.0 on 06/09/2021. Hemoglobin normal at 14.7 on 12/25/2021. Arthritis Back Pain BMI 37.0-37.9, adult BMI 38.0-38.9,adult Chronic depression Degenerative arthritis of knee, bilateral Encounter for prostate cancer screening PSA 2.4 03/26/2021, increased from 1.9. Encounter for wellness examination in adult Fatigue Hypertension Mid-back pain, acute Mixed hyperlipidemia (03/26/21) total cholesterol 179, triglycerides 354, HDL 31 and LDL 89 on 03/26/2021 Muscle strain New onset headache (~12/2021) secondary to prednisone Obesity (BMI 30-39.9) Renal insufficiency renal function normal on 03/26/2021 with BUN 25, creatinine 1.1, and GFR 73 Restless legs syndrome iron 110 with 35% saturation and ferritin 79 on 12/25/2021. Symptomatic varicose veins of both lower extremities Umbilical hernia without obstruction and without gangrene Surgical History Surgical History H/O shoulder surgery right shoulder Family History Family History Father Diabetes mellitus, Onset Age: 79 Mother Hypertension Family history of kidney disease Family history of chronic obstructive pulmonary disease, Onset Age: 70 Social History Social History Smoking status: Never smoker Second hand tobacco smoke exposure: No Additional smoking assessment comments: PT DENIES ALL FORMS OF TOBACCO USE Alcohol intake: never Substance use: never Substance use type: does not use Lack of Transportation: No Lack of Food: Never True Current Housing: I Have Housing Concerned About Future Housing: No Difficulty Paying Gas/Electric Bills: No Difficulty Paying for Meds: No Currently Unemployed: No Education: Master's Degree or Higher Difficulty w/ Childcare or Family Care: No 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[employer], 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 Gender identity (if verbalized by the patient): Male Sexual Orientation (if Verbalized by the Patient): Straight or Heterosexual Spiritual care concerns: No Meds Home Medications and Allergies Home Medications Medication Instructions Recorded Confirmed Type cyanocobalamin (vitamin B-12) 2,500 mcg PO 3XW 02/25/20 04/28/22 History 2,500 mcg tablet cholecalciferol (vitamin D3) 125 5,000 unit PO DAILY 04/01/21 04/28/22 History mcg (5,000 unit) capsule escitalopram oxalate 10 mg tablet 10 mg PO DAILY #90 tabs 06/08/21 04/28/22 Rx (Lexapro) magnesium 250 mg tablet 250 mg PO QHS PRN Restless Leg(S) 10/13/21 04/28/22 History hydrochlorothiazide 25 mg tablet 25 mg PO DAILY #90 tabs 10/28/21 04/28/22 Rx lisinopril 40 mg tablet 40 mg PO DAILY #90 tabs 10/28/21 04/28/22 Rx aspirin 81 mg capsule 81 mg PO DAILY 04/19/22 04/28/22 History Allergies Allergy/AdvReac Type Severity Reaction Status Date / Time No Known Allergies Allergy Unverified 04/19/22 08:17
[2022-05-03] VITALS (12 sets, daily range): BP systolic 114–151; BP diastolic 55–83; PULSE 67–98; RESP 12–18; TEMP 36.3–37.4; O2SAT 92–98
--- NOTE | ~2022-05-03 | XR_ITS ---
EXAMINATION: XR knee LT 2V DATE: 05/03/2022 11:21 INDICATION: Postoperative evaluation following left total knee arthroplasty. TECHNIQUE: Anteroposterior and lateral views of the left knee were obtained. COMPARISON: None. FINDINGS: Left total knee arthroplasty without patellar resurfacing appears well seated and in near anatomic al ignment. No fractures identified. Skin emily and expected postoperative subcutaneous and intra-ar ticular gas. IMPRESSION: 1. Left total knee arthroplasty, negative for postoperative purposes. Reviewed, dictated and finalized at location A. E PURCHASE DRIVER
[2022-05-03] MEDS: ACETAMINOPHEN 500 MG TABLET 1000 MG PO ×3 (06:52→20:08)
[2022-05-03] MEDS: LACTATED RINGERS 1,000 ML 30 ML IV CONT ×2 (07:00→11:20)
--- NOTE | 2022-05-03 07:03 | WPDANESEPPF ---
Anes - Initial Pre Proc Eval Procedure: Operation Date: 05/03/22 07:30 Proposed Procedures p Left Total Knee Arthroplasty - Luis Kincaid MD Date/Time: 05/03/22 07:03 Surgeon: Luis Kincaid MD Pre Op Diagnosis: Lt Knee OA Patient Data Age: 61 Gender: M Height: 1.83 m Weight: 131.2 kg Last Vital Signs Temp 36.8 C 04/19/22 08:10 Pulse 66 04/19/22 08:10 Resp 20 04/19/22 08:10 BP 122/80 04/19/22 08:10 Pulse Ox 100 04/19/22 08:10 O2 Del Method Room Air 04/19/22 08:10 Allergies Allergy/AdvReac Type Severity Reaction Status Date / Time No Known Allergies Allergy Unverified 04/19/22 08:17 Home Medications Medication Instructions Recorded Confirmed Type cyanocobalamin (vitamin B-12) 2,500 mcg PO 3XW 02/25/20 04/28/22 History 2,500 mcg tablet cholecalciferol (vitamin D3) 125 5,000 unit PO DAILY 04/01/21 04/28/22 History mcg (5,000 unit) capsule escitalopram oxalate 10 mg tablet 10 mg PO DAILY #90 tabs 06/08/21 04/28/22 Rx (Lexapro) magnesium 250 mg tablet 250 mg PO QHS PRN Restless Leg(S) 10/13/21 04/28/22 History hydrochlorothiazide 25 mg tablet 25 mg PO DAILY #90 tabs 10/28/21 04/28/22 Rx lisinopril 40 mg tablet 40 mg PO DAILY #90 tabs 10/28/21 04/28/22 Rx aspirin 81 mg capsule 81 mg PO DAILY 04/19/22 04/28/22 History Patient hx anesthesia problems: none Family hx anesthesia problems: none Results Review: All pre-operative results and documents have been reviewed as part of the pre-operative evaluation. [facility] Past Medical History Medical History Acute superficial venous thrombosis of right lower extremity Anemia (06/09/21) hemoglobin 12.0 with hematocrit 35.0 on 06/09/2021. Hemoglobin normal at 14.7 on 12/25/2021. Arthritis Back Pain BMI 37.0-37.9, adult BMI 38.0-38.9,adult Chronic depression Degenerative arthritis of knee, bilateral Encounter for prostate cancer screening PSA 2.4 03/26/2021, increased from 1.9. Encounter for wellness examination in adult Fatigue Hypertension Mid-back pain, acute Mixed hyperlipidemia (03/26/21) total cholesterol 179, triglycerides 354, HDL 31 and LDL 89 on 03/26/2021 Muscle strain New onset headache (~12/2021) secondary to prednisone Obesity (BMI 30-39.9) Renal insufficiency renal function normal on 03/26/2021 with BUN 25, creatinine 1.1, and GFR 73 Restless legs syndrome iron 110 with 35% saturation and ferritin 79 on 12/25/2021. Symptomatic varicose veins of both lower extremities Umbilical hernia without obstruction and without gangrene Surgical History Surgical History H/O shoulder surgery right shoulder Family History Family History Father Diabetes mellitus, Onset Age: 79 Mother Hypertension Family history of kidney disease Family history of chronic obstructive pulmonary disease, Onset Age: 70 Social History Social History Smoking status: Never smoker Second hand tobacco smoke exposure: No Additional smoking assessment comments: PT DENIES ALL FORMS OF TOBACCO USE Alcohol intake: never Substance use: never Substance use type: does not use Lack of Transportation: No Lack of Food: Never True Current Housing: I Have Housing Concerned About Future Housing: No Difficulty Paying Gas/Electric Bills: No Difficulty Paying for Meds: No Currently Unemployed: No Education: Master's Degree or Higher Difficulty w/ Childcare or Family Care: No Living arrangements: with family 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
[2022-05-03] MEDS: TRANEXAMIC ACID 1,000MG/ISO100 1,000 MG/100 ML BAG 200 MG IVPB (07:23)
--- NOTE | 2022-05-03 07:23 | WPDHPUPDATE1 ---
History and Physical Update Update Date/Time: 05/03/22 07:23 History and Physical has been reviewed, including an updated exam of the patient. There are NO changes in the patient's condition. Risks, benefits, and alternatives have been discussed and questions answered. Patient agrees to proceed with procedure.
[2022-05-03] MEDS: ceFAZolin 3 GM/D5W 100 ML 100 ML IVPB (07:30)
[2022-05-03] MEDS: ceFAZolin SODIUM 1 GM VIAL 3 GM (08:35)
[2022-05-03] MEDS: ceFAZolin SODIUM 1 GM VIAL 2 GM IV PUSH (10:19)
[2022-05-03] MEDS: TRANEXAMIC ACID 1,000 MG/10 ML AMPUL 1000 MG IV PUSH (10:19)
[2022-05-03] MEDS: fentaNYL CITRATE INJ (*CRX) 100 MCG/2 ML VIAL 25 MCG IV PUSH ×2 (11:23→11:25)
--- NOTE | 2022-05-03 11:24 | W.PM.PROC2 ---
Procedure Note - Detailed Date of Procedure 05/03/22 Pre-op Diagnosis Lt Knee OA Post-op Diagnosis Same Procedure Performed Left total knee arthroplasty. There was extra difficulty with the procedure due to BMI of 39.2. This added approximately 40 minutes to the procedure. Surgeon Luis Kincaid MD Instrumentation Designer Jocelyne Anesthesia General Description of Procedure Patient was brought to the operating room and general anesthesia was administered. The left knee was prepped draped usual fashion. He received 3 g of Ancef weight based vancomycin 1 g of tranexamic acid preoperatively. Under anesthesia he appeared to have full extension with negative bounce. The limb was exsanguinated and tourniquet elevated to 300 mmHg. AE in 8 in longitudinal midline incision was used and a standard parapatellar arthrotomy utilized. Infrapatellar and suprapatellar fat pads were excised a quadriceps synovectomy carried out. There were some tiny osteophytes around the patella which were debrided but the articular cartilage over the patella looked completely normal. I felt it was most suitable for non resurfacing. A guide joanne was inserted down the femoral canal after aspiration of canal contents. Using the 5 degree valgus bushing, 10 mm of bone removed the distal femur medially which rested on the end of cartilage and laterally it took about 2.5 mm but this was enough to give us a flat exposed bone surface. Next the tibial plateau was cut. We tried to make a skim cut off the low point of the lateral tibial plateau and with this done we could see that there was still a low point posteromedial aspect of the medial tibial plateau that had full-thickness articular cartilage present. We removed another 2 mm of bone from the tibial plateau which shrunk the posteromedial low point which I had curetted the cartilage does assess the true bottom so that now was about 15 mm in diameter from its anterolateral anteromedial mention and about 7 mm in posteromedial corner of the tibial plateau and although there was still this remaining defect I felt that with the anticipated position of the tibia Ktaina, the component would come to the anterolateral margin of the defect but not sit over the defect. We have confirmed that we had appropriate slope about 1 degree and that we were perpendicular to the longitudinal axis of the tibia on the frontal plane. Bone quality was excellent throughout. Meniscal remnants were excised the PCL recessed. Flexion gap was assessed. It measured 10 mm medially and 13 mm laterally. The femoral sizing guide was set at 5? of external rotation which matched Whitesides line exactly and posterior referencing pinholes were placed. We impacted the 72.5 vanguard cutting block in AP and chamfer cuts were made. This seemed to be appropriate size medial to lateral without overhang and I could see that we could consider cutting down to 70 mm with minimal notching. The trial however the fit very nicely and the proximal edge of the anterior flange correspond with the proximal edge of the cut bone surface anterolateral. Given his body mass I felt that this would be the preferred size. We trialed with a 12 mm CR tray and laterally we had 1-2 mm gap at 90? medially to 2-1/2. We removed additional sclerotic osteophytes from the lateral edge of the posterior and distal lateral femoral condyle. The tibia was sized to a 79 placed at proper rotation and punched. We trialed with the size 12 insert and brought the knee into extension. We had 2 and half mm medial opening in extension lacked about 3 or 4? with a positive bounce no play laterally and there was tendency for the medial side being booked open indicating excessive lateral tightness. The iliotibial band had some flexibility in extension. There is a lot of hypertrophic synovium covering this area which we debrided but I did not feel it was necessary to release the iliotibial band. We did release posterolateral capsule from
--- NOTE | 2022-05-03 11:31 | PM.OP ---
Procedure Note - Brief Procedure Note - Brief Date of procedure: 05/03/22 <SEAN Larsen - Last Filed: 05/03/22 11:33> 05/03/22 <Luis Kincaid MD - Last Filed: 05/03/22 11:44> Pre-op diagnosis: Lt Knee OA <SEAN Larsen - Last Filed: 05/03/22 11:33> Left knee DJD <SEAN Larsen - Last Filed: 05/03/22 11:33> Procedure performed: Left total knee arthroplasty <SEAN Larsen - Last Filed: 05/03/22 11:33> Description of procedure: 61-year-old male underwent left total arthroplasty on 04/03, I was involved with the procedure including positioning the patient on the OR today. certified surgical first assistant to time surgery as well as wound closure. Ribbon Blockmaker getting patient to recovery. Total time spent was 4 hours <SEAN Larsen - Last Filed: 05/03/22 11:33> Surgeon: SEAN Larsen <SEAN Larsen - Last Filed: 05/03/22 11:33>
--- NOTE | 2022-05-03 13:13 | SUR.PHASEI ---
1300 - pt meets anesthesia criteria. room unavailable at this time. to preop for extended recovery
--- NOTE | 2022-05-03 13:15 | SUR.PREOP ---
1305 PT RECEIVED FOR HOLDING AT 1300
--- NOTE | 2022-05-03 13:54 | SUR.PHASEI ---
PHYSICAL THERAPY HERE TO SEE PT.
--- NOTE | 2022-05-03 14:55 | PC.NURSE ---
This patient, Joe Vega, was admitted to [facility] Surg Room 326-01. Patient/family oriented to hospital policies and general routines including ID bracelet, bed and alarms, visiting hours, pain management, procedures, bathroom and other care routines, personal items, smoking policy, room service/diet, and visiting hours. Report received from Renee RN. Information on how to activate the Rapid Response Team has been discussed. Patient/Family are encouraged to report perceived risks to care and to ask questions if they do not understand what they are told or what they should do.
[2022-05-03] MEDS: CYANOCOBALAMIN 500 MCG TABLET 2500 MCG PO (16:08)
[2022-05-03] MEDS: SENNA/DOCUSATE SODIUM TABLET 2 TAB PO (16:09)
[2022-05-03] MEDS: oxyCODONE HCL (*CRX) 5 MG TAB IR PO ×2 (17:10→20:08)
[2022-05-03] MEDS: FAMOTIDINE 20 MG TABLET PO (20:08)
[2022-05-04] VITALS: BP 134/76; PULSE 61; RESP 15; TEMP 35.9; O2SAT 96
[2022-05-04] MEDS: oxyCODONE HCL (*CRX) 5 MG TAB IR PO ×2 (00:01→10:31)
[2022-05-04 04:00] VITALS: BP 122/68; PULSE 58; RESP 18; TEMP 36.2; O2SAT 96
--- NOTE | 2022-05-04 06:24 | PM.PNORT ---
Subjective Subjective Date/Time Seen: 05/04/22 06:24 Postop day 1 patient is alert. Afebrile vital signs are stable. Dressing dry intact. Neurovascularly is controlled. He was up walking yesterday with physical therapy and has been up multiple times overnight to the restroom. Patient had his right knee recently replaced he is well aware of the recovery. Overall he is doing very well we will plan to have him work with physical therapy this morning and discharge him home later this morning Objective Data Vital Signs Vital Signs: Vital Signs - 24 hr 05/03/22 06:45 05/03/22 11:20 05/03/22 11:35 Temperature 36.7 C 37.4 C Pulse Rate 67 97 98 Respiratory Rate 16 12 14 Blood Pressure 136/83 131/72 130/61 Pulse Oximetry 96 92 93 Oxygen Delivery Room Air Simple Face Mask Simple Face Mask Oxygen Flow Rate 8 10 05/03/22 11:50 05/03/22 12:05 05/03/22 12:20 Temperature Pulse Rate 96 92 92 Respiratory Rate 12 12 16 Blood Pressure 138/68 131/68 128/73 Pulse Oximetry 94 94 92 Oxygen Delivery Nasal Cannula Nasal Cannula Nasal Cannula Oxygen Flow Rate 2 2 2 05/03/22 12:35 05/03/22 12:45 05/03/22 13:46 Temperature Pulse Rate 91 93 Respiratory Rate 16 18 Blood Pressure 134/64 114/55 L Pulse Oximetry 94 94 Oxygen Delivery Nasal Cannula Nasal Cannula Room Air Oxygen Flow Rate 2 2 05/03/22 14:30 05/03/22 15:55 05/03/22 15:10 Temperature 36.3 C L 36.6 C Pulse Rate 80 83 Respiratory Rate 18 18 Blood Pressure 132/75 148/83 H Pulse Oximetry 96 96 Oxygen Delivery Nasal Cannula Room Air Oxygen Flow Rate 2 05/03/22 16:55 05/03/22 20:00 05/04/22 00:00 Temperature 36.6 C 36.6 C 35.9 C L Pulse Rate 90 74 61 Respiratory Rate 18 18 15 Blood Pressure 132/80 151/68 H 134/76 Pulse Oximetry 98 94 96 Oxygen Delivery Oxygen Flow Rate 05/04/22 04:00 Temperature 36.2 C L Pulse Rate 58 L Respiratory Rate 18 Blood Pressure 122/68 Pulse Oximetry 96 Oxygen Delivery Oxygen Flow Rate Intake/Output Intake/Output: Intake & Output 1205/02/22 05/03/22 05/04/22 23:59 23:59 23:59 23:59 Intake Total 1740 300 Balance 1740 300 Meds/Results Medications: Active Medications Generic Name Dose Route Start Last Admin Trade Name Freq PRN Reason Stop Dose Admin Acetaminophen 1,000 mg 05/03/22 15:10 05/04/22 02:01 Acetaminophen 500 Mg Tablet PO Not Given Q6H [facility] Apixaban 2.5 mg 05/04/22 09:00 Apixaban 2.5 Mg Tablet PO 05/15/22 21:01 Q12HR MIRELA Aspirin 81 mg 05/04/22 08:00 Aspirin 81 Mg Chewable Tablet PO DAILY@0800 [facility] Celecoxib 200 mg 05/04/22 08:00 Celecoxib 200 Mg Capsule PO DAILY@0800 [facility] Cephalexin HCl 500 mg 05/04/22 10:00 Cephalexin 500 Mg Capsule PO Q6HR [facility] Cyanocobalamin 2,500 mcg 05/03/22 16:00 05/03/22 16:08 Cyanocobalamin 500 Mcg Tablet PO 2,500 mcg MoWeFr@0900 MIRELA Administration Escitalopram Oxalate 10 mg 05/04/22 09:00 Escitalopram Oxalate 10 Mg Tablet PO DAILY MIRELA Famotidine 20 mg 05/03/22 21:00 05/03/22 20:08 Famotidine 20 Mg Tablet PO 20 mg Q12HR MIRELA Administration Hydrochlorothiazide 25 mg 05/04/22 09:00 Hydrochlorothiazide 25 Mg Tablet PO DAILY MIRELA Vancomycin HCl 1,000 mg in 250 mls @ 250 mls/hr 05/03/22 19:00 05/04/22 06:00 Vancomycin 1,000 Mg/D5w 250 Ml IVPB 05/04/22 07:59 250 mls/hr Q12H MIRELA Administration Cefazolin Sodium 1 gm in 50 mls @ 100 mls/hr 05/03/22 16:00 05/04/22 00:02 Ancef 1 Gm/D5w 50 Ml Pm IVPB 05/04/22 08:29 100 mls/hr Q8H MIRELA Administration Naloxone HCl 0.1 mg 05/03/22 15:10 Naloxone Hcl 0.4 Mg/Ml Vial IV PUSH Q2M PRN Opiate Reversal Ondansetron HCl 4 mg 05/03/22 15:10 Ondansetron Inj 4 Mg/2 Ml Vial IV PUSH Q4H PRN Nausea And Vomiting Oxycodone HCl 5 mg 05/03/22 13:07 Oxycodone Hcl (*Crx) 5 Mg Tab Ir PO Q4H PRN Pain Rated 4-6 Oxycodone HCl 5 mg 05/03/22 13:07
--- NOTE | 2022-05-04 06:28 | PM.DS ---
DS: Admitting Diagnosis Discharge Date 05/04 Admitting Diagnosis left knee DJD DS: Discharge Diagnosis Discharge Diagnosis (1) Left knee DJD: Code(s): M17.12 - Unilateral primary osteoarthritis, left knee Status: Acute DS: Summary Hospital Course Hospital Course: 61-year-old male who underwent left total knee arthroplasty on 05/03. Underwent procedure without complications. Postoperatively he has been afebrile vital signs are stable. Time of dictation morning labs on postop day 1 were not completed yet. His pain well controlled with scheduled Tylenol as well as oxycodone 5 mg. He is also on Celebrex 200 mg daily. He is weight-bearing as tolerated. He was up walking with physical therapy the day of surgery as well as up multiple times overnight to the restroom. His dressing dry and intact. Overall patient is doing very well and be discharged home with 05/04. A II week course of Keflex. He is on Eliquis for DVT prophylaxis. He also go home on MiraLax and Senokot. Patient was advised to keep leg elevated to help prevent swelling but do his exercises on an hourly basis. His outpatient therapy starting this Tuesday. Patient was advised any questions or concerns he is to call the office otherwise we will see him at his appointment dates Time Spent with Patient Time attestation: Total time spent providing and/or coordinating discharge services: DS: Data Data Completed and Pending Labs on day of discharge: Labs from last 24 hours 05/03/22 06:44 Blood Type A Negative Antibody Screen Negative Discharge Plan Discharge Patient Disposition: Home, Self-Care Discharge Instructions: CAYDEN SANCHEZ M.D [facility], [address] [address] POST-OPERATIVE DISCHARGE INSTRUCTIONS TOTAL KNEE ARTHROPLASTY 1. When resting, lie on back with leg elevated above heart to minimize swelling. Significant swelling could indicate a blood clot and if this occurs call the office (or go to the ER) to have a venous ultrasound. 2. Do exercise 5 times a day. 3. Do not sit with leg down except for meals. 4. Wound Care: Nursing will give additional dressings at discharge. Patient to change dressing at home 1 week from surgery, then maintain until seen in office. 5. May shower with dressing in place. 6. Follow weight bearing status instructions. IMPORTANT: Remember not to sit in the chair for more than 30 minutes at a time. As a rule, during the first 14 days after surgery, only sit in the chair to work on the chair knee bending stretch exercise, for meals or for use of the restroom. Sitting in the chair promotes significant swelling in the knee and leg which will make the knee stiff and more painful and which simulates having a blood clot in the veins of the leg. If this type of significant diffuse swelling occurs, an ultrasound at the hospital will be necessary to rule out a blood clot. Be up walking around with the walker for a few minutes every hour while awake and then rest laying on your back on the couch or in bed with your leg elevated on cushions or pillows. Do not rest in the chair. Stand Alone Forms: General Discharge Instructions Discharge Medications: New acetaminophen 500 mg Tablet 1,000 mg PO Q6H Qty: 90 0RF Eliquis 2.5 mg Tablet 2.5 mg PO Q12HR Qty: 28 0RF celecoxib [Celebrex] 200 mg Capsule 200 mg PO DAILY@0800 Qty: 60 0RF sennosides-docusate sodium [Senokot-S] 8.6-50 mg Tablet 2 tab-cap PO BID Qty: 60 0RF cephalexin 500 mg Capsule 500 mg PO Q6HR Qty: 56 0RF polyethylene glycol 3350 [Miralax] 17 gram Powder In Packet 17 g PO QAM Qty: 30 0RF oxycodone 5 mg Tablet 5 mg PO Q4HR Qty: 40 0RF Continued magnesium 250 mg tablet 250 mg PO QHS PRN (Reason: Restless Leg(S)) Label Comments: take 1 or 2 tablets each night for restless legs cyanocobalamin (vitamin B
[2022-05-04 06:49] LABS: Basophils Percent Auto 0.2 % (0.2-1.2); Eosinophils Percent Auto 0.1 % (0-4.4); Hematocrit 35.4 % (42.0-52.0); Hemoglobin 12.2 g/dL (14.0-18.0); Immature Granulocyte Absolute 0.09 K/mm3 (0.00-0.031); Immature Granulocyte Percent A 0.7 % (0-0.5); Lymphocytes Percent Auto 8.2 % (18.3-44.2); Mean Corpuscular HGB Conc 34.5 g/dl (32-36); Mean Corpuscular Hemoglobin 32.3 pg (26-34); Mean Corpuscular Volume 93.7 fl (80-100); Mean Platelet Volume 10.5 fl (7.4-10.4); Monocytes Percent Auto 8.2 % (2.6-8.5); Neutrophils Percent Auto 82.6 % (45.5-73.1); Platelet Count Result 204 k/mm3 (150-375); Red Blood Count 3.78 M/mm3 (4.6-6.20); Red Cell Distribution Width 12.5 % (11.5-14.5); White Blood Count 12.2 K/mm3 (4.5-10.0)
[2022-05-04 06:53] LABS: Anion Gap 6 mmol/L (8-16); Blood Urea Nitrogen 20 mg/dL (9-20); Calcium 8.4 mg/dL (8.4-10.2); Carbon Dioxide 24 mmol/L (22-30); Chloride 101 mmol/L (98-107); Estimated CRCL calculation 81 ml/min; Estimated Glomerular Filt Rate > 60; Glucose 155 mg/dL (65-110); Potassium 4.1 mmol/L (3.4-5.0); Sodium 131 mmol/L (137-145)
[2022-05-04 09:44] VITALS: BP 142/71; PULSE 85; RESP 17; TEMP 36.7; O2SAT 96
[2022-05-04] MEDS: ASPIRIN 81 MG CHEWABLE TABLET PO (09:54)
[2022-05-04] MEDS: CELECOXIB 200 MG CAPSULE PO (09:55)
[2022-05-04] MEDS: APIXABAN 2.5 MG TABLET PO (09:56)
[2022-05-04] MEDS: SENNA/DOCUSATE SODIUM TABLET 2 TAB PO (09:56)
[2022-05-04] MEDS: CHOLECALCIFEROL 1,000 UNITS TABLET 5000 UNITS PO (09:56)
[2022-05-04] MEDS: hydroCHLOROthiazide 25 MG TABLET PO (09:57)
[2022-05-04] MEDS: FAMOTIDINE 20 MG TABLET PO (09:57)
[2022-05-04] MEDS: polyethylene glycoL 3350 17 GM POWD.PACK PO (09:57)
[2022-05-04] MEDS: ESCITALOPRAM OXALATE 10 MG TABLET PO (09:57)
[2022-05-04] MEDS: CEPHALEXIN 500 MG CAPSULE PO ×2 (09:58→11:49)
--- NOTE | 2022-05-04 10:14 | PCOTNOTE ---
Attempted to see patient for OT, patient reports no concerns with d/c home, familiar with dressing and bathing technique from previous TKA. Per [employer] FLOOR INSTALLATION HELPER, patient mobility very good and no concerns with d/c'ng home. Patient's RN notified patient refused OT.
[2022-05-04] MEDS: ACETAMINOPHEN 500 MG TABLET 1000 MG PO (10:30)
== END 2022-05-04 11:57 | disposition home or self-care (01) ==
LOC: ANHSURGERY 06:34 → ANH3MEDSUR 15:11
PROVIDERS: Physician Assistant Surgical; PCP Family Medicine; Visit Provider Orthopaedic Surgery
PROC: (CPT 27447; principal; 2022-05-03 07:30)
DX: M17.12 Unilateral primary osteoarthritis, left knee (principal); I10 Essential (primary) hypertension; E78.2 Mixed hyperlipidemia; G25.81 Restless legs syndrome; D64.9 Anemia, unspecified; F32.A Depression, unspecified; N28.9 Disorder of kidney and ureter, unspecified; E66.9 Obesity, unspecified; Z68.39 Body mass index [BMI] 39.0-39.9, adult
CPT/HCPCS: 27447; 36415; 73560; 80048; 80307; 82040; 83036; 85025; 86850; 86900; 86901; 87081; 93005; 97110; 97116; 97161; 97165; 97530; A9270; C1713; C1776; J0171; J0330; J0690; J1100; J1170; J1885; J2250; J2270; J2405; J2704; J2795; J3010; J3370; J7120

== ENCOUNTER 2022-08-09 17:10 | Outpatient (CLI) | payer BC, SELFPAY ==
--- NOTE | ~2022-08-09 | XR_ITS ---
EXAM: [id number] DATE: 08/09/2022 17:34 HISTORY: M79.672 - Pain across anterior left foot x 6months. NKI . COMPARISON: None available. FINDINGS: Normal mineralization. No fracture or dislocation. No lytic or blastic lesion. Moderate pina llux valgus. Severe degenerative change at the first MTP joint mild degenerative change in multiple m idfoot joints. Marked Achilles and minimal plantar enthesopathy. Loss of the longitudinal arch. No er osion or periosteal change. Soft tissues within normal limits. IMPRESSION: Severe osteoarthritis of the first MTP joint. Pes planus. Reviewed, dictated and finalized at location K.
== END 2022-08-09 17:11 | disposition home or self-care (01) ==
LOC: ANHIMG 17:12
PROVIDERS: PCP Family Medicine; Visit Provider Nurse Practitioner Family
DX: M19.072 Primary osteoarthritis, left ankle and foot (principal)
CPT/HCPCS: 73630

== ENCOUNTER → 2023-08-16 11:18 | Outpatient (CLI) | payer OTHER, SELFPAY ==
--- NOTE | ~2023-08-16 | XR_ITS ---
XR lumbar spine min 4V DATE: 08/16/2023 11:36 INDICATION: Lumbago, right sciatica TECHNIQUE: AP, lateral, bilateral oblique views, coned lateral lumbosacral view COMPARISON: 02/18/2022 lumbar spine FINDINGS: There is stable grade 1 anterolisthesis at L4-5 since 02/18/2022, due to degenerative change at the apophyseal joints. Severe degenerative disc disease is again noted at L5-S1. There is mild degenerative disc disease at the remainder of the lumbar spine. No fracture or bone destruction is evident. The lumbar pedicles appear intact. The sacral iliac joint s are unremarkable other than degenerative change. IMPRESSION: No significant change since 02/18/2022 Reviewed, dictated and finalized at location L.
== END ==
PROVIDERS: PCP Nurse Practitioner Family; Visit Provider Nurse Practitioner Family
DX: M54.41 Lumbago with sciatica, right side (principal)
CPT/HCPCS: 72110

== ENCOUNTER 2023-09-30 12:46 | Outpatient (CLI) | payer OTHER, SELFPAY ==
--- NOTE | ~2023-09-30 | MR_ITS ---
MRI of the lumbar spine Clinical History: Radiculopathy Technique: Axial T2-weighted images, and sagittal T1-weighted, T2-weighted, and T2 fat-sat images wer e acquired. Findings: No fracture identified. There is minimal grade 1 retrolisthesis of L5 over S1. No suspiciou s bone marrow signal abnormality seen. At L1-L2, there is no significant disc bulge or herniation. There is moderate to advanced facet arthr opathy. There is no angeline central canal stenosis. Bilateral neural foramina are preserved. At L2-L3, there is mild disc bulge with advanced facet arthropathy. There is moderate to advanced suresh tral canal stenosis/thecal sac compression. There is minimal left neural foraminal narrowing. Right n eural foramen preserved. At L3-L4, there is disc bulge and severe facet arthropathy, resulting in severe spinal canal stenosis /thecal sac compression. There is small right-sided synovial cyst measuring 4 mm. There is moderate r ight neural foraminal narrowing and minimal left neural foraminal narrowing. At L4-L5, there is disc bulge and severe facet arthropathy. There is mild central canal stenosis. No significant neural foraminal narrowing evident. At L5-S1, there is central disc protrusion with tiny annular fissure. There is advanced facet arthrop athy. No central canal stenosis or definite neural foraminal narrowing. Paravertebral soft tissues are unremarkable. Impression: Severe degenerative spondylosis at L3-L4 and L2-L3, as detailed above. Additional mild degenerative changes, as above. Reviewed, dictated and finalized at [facility]. Impression: Severe degenerative spondylosis at L3-L4 and L2-L3, as detailed above. Additional mild degenerative changes, as above.
== END 2023-09-30 12:47 ==
LOC: GOSHIMG 12:48
PROVIDERS: PCP Family Medicine; Visit Provider Nurse Practitioner Family
DX: M47.26 Other spondylosis with radiculopathy, lumbar region (principal)
CPT/HCPCS: 72148

== ENCOUNTER 2024-02-28 11:49 | Outpatient (CLI) | payer OTHER, SELFPAY ==
--- NOTE | 2024-02-28 13:01 | ECG_ITS ---
Test Date: 2024-02-28 13:23:16 Measurements Intervals [place] Rate: 49 P: 28 [place]: 155 QRS: -4 QRSD: 118 T: 9 QT: 415 QTc: 378 Interpretive Statements SINUS BRADYCARDIA MODERATE INTRAVENTRICULAR CONDUCTION DELAY [110+ ms QRS DURATION] WARNING: DATA QUALITY MAY AFFECT INTERPRETATION No previous ECG available for comparison Electronically Signed On 02-28-2024 13:34:09 CDT by Myke Vlale M.D.
[2024-02-28 13:39] LABS: Basophils Absolute Auto 0.1 K/mm3 (0.0-0.1); Basophils Percent Auto 0.9 % (0.2-1.2); Eosinophils Absolute Auto 0.3 K/mm3 (0-0.3); Eosinophils Percent Auto 3.9 % (0-4.4); Hemoglobin 15.1 g/dL (14.0-18.0); Immature Granulocyte Absolute 0.02 K/mm3 (0.00-0.031); Immature Granulocyte Percent A 0.3 % (0-0.5); Lymphocytes Absolute Auto 1.98 K/mm3 (0.9-3.2); Lymphocytes Percent Auto 30.5 % (18.3-44.2); Mean Corpuscular HGB Conc 34.3 g/dl (32-36); Mean Corpuscular Hemoglobin 31.5 pg (26-34); Mean Corpuscular Volume 91.9 fl (80-100); Mean Platelet Volume 9.7 fl (7.4-10.4); Monocytes Absolute Auto 0.6 K/mm3 (0.1-0.6); Monocytes Percent Auto 8.9 % (2.6-8.5); Neutrophils Absolute Auto 3.6 K/mm3 (1.3-6.7); Neutrophils Percent Auto 55.5 % (45.5-73.1); Platelet Count Result 226 k/mm3 (150-375); Red Blood Count 4.79 M/mm3 (4.6-6.20); Red Cell Distribution Width 12.2 % (11.5-14.5); White Blood Count 6.5 K/mm3 (4.5-10.0)
[2024-02-28 13:51] LABS: Alanine Aminotransferase 30 U/L (6-50); Albumin Level 4.6 g/dL (3.5-5.1); Alkaline Phosphatase 62 U/L (38-126); Anion Gap 8 mmol/L (4-12); Aspartate Amino Transferase 28 U/L (17-59); Bilirubin,Total 0.8 mg/dL (0.2-1.3); Blood Urea Nitrogen 22 mg/dL (9-20); Calcium 9.3 mg/dL (8.4-10.2); Carbon Dioxide 27 mmol/L (22-30); Chloride 103 mmol/L (98-107); Estimated Glomerular Filt Rate > 60; Glucose 97 mg/dL (65-110); Potassium 4.2 mmol/L (3.4-5.0); Sodium 138 mmol/L (137-145)
[2024-02-28 13:53] LABS: INR 1.1; Prothrombin Time 14.1 Seconds (11.1-14.7)
[2024-02-28 13:54] LABS: Partial Thromboplastin Time 25.1 Seconds (22.3-36.8)
== END 2024-02-28 11:50 | disposition home or self-care (01) ==
LOC: ANHSURGERY 11:54
PROVIDERS: PCP Family Medicine; Visit Provider Urology
DX: Z01.818 Encounter for other preprocedural examination (principal); I10 Essential (primary) hypertension; C61 Malignant neoplasm of prostate; R00.1 Bradycardia, unspecified
CPT/HCPCS: 36415; 80053; 85025; 85610; 85730; 87086; 93005

== ENCOUNTER 2024-03-14 14:40 | Observation (INO) | payer OTHER, SELFPAY ==
--- NOTE | 2024-02-28 11:55 | PC.NURSE ---
Report to the Outpatient Waiting Room, entrance under the green pavilion located off [facility], at time __6:00AM on date ___03/13/24____. Planned Procedure Time: __7:30AM .? Time changes happen often and if your time is changed the preop area will call you the afternoon before. - You and your visitor will be asked to self-screen and do not enter if you have any COVID symptoms. Please call surgeon if you need to reschedule. - A mask is optional within the hospital at this time. Patients may have clear liquids (water, carbonated beverages, clear teas, apple juice) until 3 hours prior to surgery with a maximum of 20 ounces. - No food from midnight until time of surgery and no smoking. Take only the following medications with a SIP of water on the morning of surgery: ____NONE DO NOT STOP ANY OF YOUR OTHER PRESCRIPTION MEDICATIONS PRIOR TO SURGERY EXCEPT THE FOLLOWING Medications to discontinue per physician ____HOLD VITAMINS/SUPPLEMENTS & ASPIRIN 7 DAYS PRE-OP PER DR MENDOZA Date to take last dose____03/05/24 Please no make-up, nail thai, hairspray, perfume, deodorant, or body powder the day of surgery.? No jewelry (including any body piercings) or valuables the day of surgery, leave them at home.? Please take a shower or bath the night before, or the morning of, surgery with an antibacterial soap.? Wear comfortable, loose fitting clothing.? - Jewelry must be removed prior to entering the operating room.? Rings and piercings that are not removed may be cut off. - The hospital will not accept responsibility for valuables.? - Please leave all valuables, including medications, at home the day of surgery. If you are going home after surgery, a licensed fire truck driver must drive you home.? - NO public transportation without another adult if you receive anesthesia. - We recommend that an adult stay with you for 24 hours following discharge. - We also recommend that you do not drive, make important decision, drink alcoholic beverages, or take any drugs that were not prescribed by your health care provider for at least 24 hours after your discharge time. Follow any additional instructions given to you from your surgeon. Telephone instructions given to ____PATIENT and asked if any additional questions and then verbalized understanding. Patient advised to call surgeon office or pre surgery nurse liaison [phone] if any additional questions.
[2024-02-28 12:05] VITALS: BP 141/74; PULSE 55; RESP 16; TEMP 36.8; O2SAT 96; BMI 38.7
--- NOTE | 2024-03-12 17:13 | WPDANESEPP ---
Anes - Eval Pre Procedure Procedure: Operation Date: 03/13/24 07:30 Proposed Procedures p Robotic Assisted Nerve Sparing Prostatectomy with Possible Pelvic Lymph Node Dissection - Austen Quinones MD s Open Umbilical Hernia Repair with Mesh - Ish Cantor DO Date/Time: 03/12/24 17:13 Pre Op Diagnosis: prostate cancer, Umb Hernia 3 cm Patient Data Age: 63 Gender: M Height: 1.83 m Weight: 129.6 kg Last Vital Signs Temp 98.2 F 02/28/24 12:05 Pulse 55 L 02/28/24 12:05 Resp 16 02/28/24 12:05 BP 141/74 H 02/28/24 12:05 Pulse Ox 96 02/28/24 12:05 O2 Del Method Room Air 02/28/24 12:05 Allergies Allergy/AdvReac Type Severity Reaction Status Date / Time No Known Allergies Allergy Verified 02/28/24 12:00 Home Medications Medication Instructions Recorded Confirmed Type cyanocobalamin (vitamin B-12) 2,500 mcg PO 3XW 02/25/20 02/28/24 History 2,500 mcg tablet cholecalciferol (vitamin D3) 125 5,000 unit PO DAILY 04/01/21 02/28/24 History mcg (5,000 unit) capsule magnesium 250 mg tablet 250 mg PO QHS PRN Restless Leg(S) 10/13/21 02/28/24 History metformin 500 mg tablet,extended 500 mg PO BID #180 tabs 12/08/23 02/28/24 Rx release 24 hr aspirin 81 mg tablet,delayed 81 mg PO DAILY 02/28/24 02/28/24 History release hydrochlorothiazide 12.5 mg tablet 12.5 mg PO DAILY #90 tabs 02/29/24 Rx lisinopril 40 mg tablet 40 mg PO . q.a.m. #90 tabs 02/29/24 Rx Patient hx anesthesia problems: none Family hx anesthesia problems: none Results Review: All pre-operative results and documents have been reviewed as part of the pre-operative evaluation. [facility] Past Medical History Medical History (Updated 03/12/24 @ 17:17 by Jose Romero Jr., DOUBLE BACK OPERATOR) Acute superficial venous thrombosis of right lower extremity Adenocarcinoma of prostate (~11/2023) 9 of 15 samples positive biopsy Vivian, 2024. MRI of the prostate with no adenopathy. Anemia (06/09/21) hemoglobin 12.0 with hematocrit 35.0 on 06/09/2021. Hemoglobin normal at 14.7 on 12/25/2021. hemoglobin 14.8, iron 86 with 25% saturation and ferritin a 91 on 10/22/2022.Hemoglobin 15.9 on 05/10/2023. Arthritis Back Pain BMI 38.0-38.9,adult Chronic depression Resolved Chronic low back pain with right-sided sciatica (~01/2022) x-ray of the lumbar spine on 02/18/2022 reveals severe degenerative disc disease at L5-S1. MRI 09/30/2023 with severe degenerative spondylosis at L2-L3 and L3-L4 With severe spinal canal stenosis. Chronic pain of left knee Degenerative arthritis of knee, bilateral bilateral total knee replacement Diabetes Elevated PSA, less than 10 ng/ml (05/10/23) PSA elevated on 05/10/2023 at 4.3, increased from 2.7. PSA 4.3 with free PSA 10.2% on 08/09/2023. Encounter for prostate cancer screening PSA 2.4 03/26/2021, increased from 1.9. PSA 2.7 on 06/15/2022. PSA elevated at 4.3 on 05/10/2023. Encounter for screening colonoscopy (~2017) 02/28/2014, colonoscopy 02/13/[address] Samson. Encounter for wellness examination in adult Essential (primary) hypertension Fatigue Hypertension Increased stool volume Left foot pain (~2022) X-ray of the left foot on 08/09/2022 with severe osteoarthritis 1st MTP joint with bunion and posterior heel spur and loss of longitudinal arch. Left knee DJD Mid-back pain, acute Mixed hyperlipidemia (03/26/21) total cholesterol 179, triglycerides 354, HDL 31 and LDL 89 on 03/26/2021. Total cholesterol 165, triglycerides 190, HDL 34, LDL 98 on 06/15/2022. Total cholesterol 170, triglycerides 183, HDL 36, LDL 102 on 10/22/2022. Cholesterol 180, triglycerides 431, HDL 30, LDL 81 on 05/10/2023. Cholesterol 191, triglycerides 146, HDL 39, LDL 126 on 08/09/2023.Cholesterol 157, triglycerides 196, HDL 31, LDL 92 on 11/30/2023. Muscle strain Nail fungus bilateral great toes, 100% New onset headache (~12/2021) secondary to prednisone Obesity (BMI 30-39.9) NICOLAS on CPAP (~03/2018) CPAP
[2024-03-13] VITALS (17 sets, daily range): BP systolic 94–135; BP diastolic 49–76; PULSE 62–94; RESP 13–20; TEMP 36.2–37.2; O2SAT 93–97
--- NOTE | 2024-03-13 06:48 | P.PNAN_ITS ---
Anes - Eval Final PreProcedure Day of Procedure 03/13/24 06:48 Patient weight: obese Heart: regular rate and rhythm Lungs: clear to auscultation Airway: Mallampati scale class II Neurological: alert and oriented Last oral intake: >/= 8 hours ASA classification: III Emergent: no Anesthetic plan: proceed Anesthesia type and monitoring: general ETT and standard monitoring Results Review: All pre-operative results and documents have been reviewed as part of the pre- operative evaluation. Informed Consent: The patient's anesthetic plan and its attendant risks including nerve injury and facial swelling/ eye injury and benefits were discussed with the patient/family/POA. Questions were solicited and answers provided to the satisfaction of the patient/family/POA.
[2024-03-13 06:49] LABS: Glucose Point of Care 91 mg/dl (65-105)
[2024-03-13] MEDS: LACTATED RINGERS 1,000 ML 30 ML IV CONT ×3 (07:00→12:24)
--- NOTE | 2024-03-13 07:11 | PM.IMHP ---
H&P: HPI History of Present Illness Date/Time: 03/13/24 07:11 Chief Complaint: Umbilical hernia, prostate cancer Narrative: 63 yo man presents for prostatectomy and umbilical hernia repair. He reports no changes since last seen in office. Review of Systems Review of Systems: All systems reviewed & are unremarkable except as noted in HPI and below Constitutional: Constitutional: Denies chills, Denies fever(s), Denies headache(s) and Denies weight loss Eyes: Eyes: Denies change in vision ENT: Denies dizziness, Denies headache(s), Denies neck mass and Denies throat swelling Cardiovascular: Cardiovascular: Denies chest pain, Denies lightheadedness and Denies dyspnea Respiratory: Respiratory: Denies cough, Denies dyspnea and Denies wheezing Gastrointestinal: Gastrointestinal: Denies abdominal pain, Denies change in bowel habits, Denies nausea and Denies vomiting Genitourinary: Genitourinary: Denies hematuria and Denies dysuria Musculoskeletal: Musculoskeletal: Reports as per HPI Integumentary/Breasts: Skin/Breast: Reports as per HPI Neurologic: Denies dizziness and Denies headache(s) Allergic/Immunologic: Allergic/Immunologic: Denies throat swelling and Denies wheezing [facility] Past Medical History Medical History (Updated 03/12/24 @ 17:17 by Jose Romero Jr., [employer] STATION ATTENDANT) Acute superficial venous thrombosis of right lower extremity Adenocarcinoma of prostate (~11/2023) 9 of 15 samples positive biopsy November,. MRI of the prostate with no adenopathy. Anemia (06/09/21) hemoglobin 12.0 with hematocrit 35.0 on 06/09/2021. Hemoglobin normal at 14.7 on 12/25/2021. hemoglobin 14.8, iron 86 with 25% saturation and ferritin a 91 on 10/22/2022.Hemoglobin 15.9 on 05/10/2023. Arthritis Back Pain BMI 38.0-38.9,adult Chronic depression Resolved Chronic low back pain with right-sided sciatica (~01/2022) x-ray of the lumbar spine on 02/18/2022 reveals severe degenerative disc disease at L5-S1. MRI 09/30/2023 with severe degenerative spondylosis at L2-L3 and L3-L4 With severe spinal canal stenosis. Chronic pain of left knee Degenerative arthritis of knee, bilateral bilateral total knee replacement Diabetes Elevated PSA, less than 10 ng/ml (05/10/23) PSA elevated on 05/10/2023 at 4.3, increased from 2.7. PSA 4.3 with free PSA 10.2% on 08/09/2023. Encounter for prostate cancer screening PSA 2.4 03/26/2021, increased from 1.9. PSA 2.7 on 06/15/2022. PSA elevated at 4.3 on 05/10/2023. Encounter for screening colonoscopy (~2017) 02/28/2014, colonoscopy 02/13/[address] Samson. Encounter for wellness examination in adult Essential (primary) hypertension Fatigue Hypertension Increased stool volume Left foot pain (~2022) X-ray of the left foot on 08/09/2022 with severe osteoarthritis 1st MTP joint with bunion and posterior heel spur and loss of longitudinal arch. Left knee DJD Mid-back pain, acute Mixed hyperlipidemia (03/26/21) total cholesterol 179, triglycerides 354, HDL 31 and LDL 89 on 03/26/2021. Total cholesterol 165, triglycerides 190, HDL 34, LDL 98 on 06/15/2022. Total cholesterol 170, triglycerides 183, HDL 36, LDL 102 on 10/22/2022. Cholesterol 180, triglycerides 431, HDL 30, LDL 81 on 05/10/2023. Cholesterol 191, triglycerides 146, HDL 39, LDL 126 on 08/09/2023.Cholesterol 157, triglycerides 196, HDL 31, LDL 92 on 11/30/2023. Muscle strain Nail fungus bilateral great toes, 100% New onset headache (~12/2021) secondary to prednisone Obesity (BMI 30-39.9) NICOLAS on CPAP (~03/2018) CPAP at 11 cm of water pressure with nasal pillows. Pain in right knee Prostate cancer Renal and ureteric calculus Lithotripsy and stone extraction on the left August,. Renal insufficiency renal function normal on 03/26/2021 with BUN 25, creatinine 1.1, and GFR 73 Restless legs syndrome iron 110 with 35% saturation and ferritin 79 on 12/25/2021. Ferritin normal at 91 on 10/22/2022. Symptomatic varicose veins of both lo
--- NOTE | 2024-03-13 07:13 | WPDHPUPDATE1 ---
History and Physical Update Update Date/Time: 03/13/24 07:13 History and Physical has been reviewed, including an updated exam of the patient. There are NO changes in the patient's condition. Risks, benefits, and alternatives have been discussed and questions answered. Patient agrees to proceed with procedure.
--- NOTE | 2024-03-13 07:16 | PM.IMHP ---
H&P: HPI History of Present Illness Date/Time: 03/13/24 07:16 Chief Complaint: prostate cancer Narrative: 63 year old male with adenocarcinoma of prostate presents for robotic assist nerve sparing prostatectomy with possible plnd Review of Systems Review of Systems: All systems reviewed & are unremarkable except as noted in HPI and below PMFSH Past Medical History Medical History Acute superficial venous thrombosis of right lower extremity Adenocarcinoma of prostate (~11/2023) 9 of 15 samples positive biopsy November,. MRI of the prostate with no adenopathy. Anemia (06/09/21) hemoglobin 12.0 with hematocrit 35.0 on 06/09/2021. Hemoglobin normal at 14.7 on 12/25/2021. hemoglobin 14.8, iron 86 with 25% saturation and ferritin a 91 on 10/22/2022.Hemoglobin 15.9 on 05/10/2023. Arthritis Back Pain BMI 38.0-38.9,adult Chronic depression Resolved Chronic low back pain with right-sided sciatica (~01/2022) x-ray of the lumbar spine on 02/18/2022 reveals severe degenerative disc disease at L5-S1. MRI 09/30/2023 with severe degenerative spondylosis at L2-L3 and L3-L4 With severe spinal canal stenosis. Chronic pain of left knee Degenerative arthritis of knee, bilateral bilateral total knee replacement Diabetes Elevated PSA, less than 10 ng/ml (05/10/23) PSA elevated on 05/10/2023 at 4.3, increased from 2.7. PSA 4.3 with free PSA 10.2% on 08/09/2023. Encounter for prostate cancer screening PSA 2.4 03/26/2021, increased from 1.9. PSA 2.7 on 06/15/2022. PSA elevated at 4.3 on 05/10/2023. Encounter for screening colonoscopy (~2017) 02/28/2014, colonoscopy 02/13/[address] Samson. Encounter for wellness examination in adult Essential (primary) hypertension Fatigue Hypertension Increased stool volume Left foot pain (~2022) X-ray of the left foot on 08/09/2022 with severe osteoarthritis 1st MTP joint with bunion and posterior heel spur and loss of longitudinal arch. Left knee DJD Mid-back pain, acute Mixed hyperlipidemia (03/26/21) total cholesterol 179, triglycerides 354, HDL 31 and LDL 89 on 03/26/2021. Total cholesterol 165, triglycerides 190, HDL 34, LDL 98 on 06/15/2022. Total cholesterol 170, triglycerides 183, HDL 36, LDL 102 on 10/22/2022. Cholesterol 180, triglycerides 431, HDL 30, LDL 81 on 05/10/2023. Cholesterol 191, triglycerides 146, HDL 39, LDL 126 on 08/09/2023.Cholesterol 157, triglycerides 196, HDL 31, LDL 92 on 11/30/2023. Muscle strain Nail fungus bilateral great toes, 100% New onset headache (~12/2021) secondary to prednisone Obesity (BMI 30-39.9) NICOLAS on CPAP (~03/2018) CPAP at 11 cm of water pressure with nasal pillows. Pain in right knee Prostate cancer Renal and ureteric calculus Lithotripsy and stone extraction on the left August,. Renal insufficiency renal function normal on 03/26/2021 with BUN 25, creatinine 1.1, and GFR 73 Restless legs syndrome iron 110 with 35% saturation and ferritin 79 on 12/25/2021. Ferritin normal at 91 on 10/22/2022. Symptomatic varicose veins of both lower extremities Umbilical hernia without obstruction and without gangrene Surgical History Surgical History H/O shoulder surgery right shoulder History of bilateral knee replacement Family History Family History Father Diabetes mellitus, Onset Age: 79 Mother Hypertension Family history of kidney disease Family history of chronic obstructive pulmonary disease, Onset Age: 70 Social History Social History Smoking status: Never smoker Second hand tobacco smoke exposure: No Additional smoking assessment comments: PT DENIES ALL FORMS OF TOBACCO USE Alcohol intake: current Drinks per week: 4 Substance use: never Substance us
[2024-03-13] MEDS: ACETAMINOPHEN 500 MG TABLET 1000 MG PO (07:20)
--- NOTE | 2024-03-13 07:20 | WPDHPUPDATE1 ---
History and Physical Update Update Date/Time: 03/13/24 07:20 History and Physical has been reviewed, including an updated exam of the patient. There are NO changes in the patient's condition. Risks, benefits, and alternatives have been discussed and questions answered. Patient agrees to proceed with procedure.
[2024-03-13] MEDS: ceFAZolin 3 GM/D5W 100 ML 100 ML IVPB (07:48)
[2024-03-13] MEDS: BUPIVACAINE/EPINEPHRINE 0.5% 50 ML VIAL 30 ML INFILTRATE (08:52)
--- NOTE | 2024-03-13 11:31 | W.PM.PROC2 ---
Procedure Note - Detailed Date of Procedure 03/13/24 Pre-op Diagnosis prostate cancer, Umb Hernia 3 cm Post-op Diagnosis Same Procedure Performed Robotic assisted nerve-sparing prostatectomy with left pelvic lymph node dissection Surgeon Austen Quinones MD Anesthesia General Description of Procedure Patient is taken the operative suite correctly identified. Once anesthesia was obtained was placed in dorsal lithotomy position and prepped draped usual sterile fashion. Patient was going to have his umbilical hernia repair in addition he was marked by Dr. Ocampo. An incision was made it in a semi-skull valley location above the umbilicus. This was carried down to the rectus fascia. Veress needle was inserted in the abdomen was insufflated to 15 mmHg pressure. Camera port was placed under direct vision. Working ports placed in appropriate locations. He had a bit of adhesions of the left colon which were taken down. Posterior approach was then taken. Seminal vesicles were dissected out in their entirety. Vas is were transected. Plane between the prostate and rectum was developed. Bladder was then taken down. Space of Retzius was developed. Puboprostatic were incised. Dorsal venous complex was isolated using 0 Vicryl and then secured to the pubic bone. Anterior bladder neck was opened. Bladder neck sparing procedure was performed. Posterior bladder neck was transected. The prior seminal vesicles were dissected out were then visualized. Bilateral nerve-sparing was performed after the pedicles were clipped. A wider excision was performed on the left side where the cancer was present. Dorsal venous complex was transected. Urethra was also transected. Specimen was placed in Endo-Catch bag. Left pelvic lymph node dissection was then performed with boundaries being the external iliac vein, obturator nerve, Malvin's ligament, and the bifurcation of the vessels. These also were placed in Endo-Catch bag. There was also some tissue that was. Urethral on the patient's right which was excised and sent as a separate specimen. A Brice stitch was then placed using 0 Vicryl. Urethra was anastomosed to the urethral stump using V lock suture in a running fashion. There was a good approximation mucosa. Eighteen [place] Roman was placed inflated with 10 cc in balloon. 150 cc were placed in the bladder and it irrigated nicely. No evidence of extravasation. RAJINDER drain was then placed through the 4th working port site. All lap count needle counts sponge counts were correct at this point. The bag was still left in the abdomen and Dr. Ocampo was going to remove it during his umbilical hernia repairs he would need to incise the fascia. Dr. Ocampo will dictate his umbilical hernia repair. This completes dictation. Please send a copy of op note to my office Estimated Blood Loss 50 Drains Yes Packing No Pathology Yes Complications No immediate complications Condition Stable Disposition PACU
--- NOTE | 2024-03-13 11:58 | W.PM.PROC2 ---
Procedure Note - Detailed Date of Procedure 03/13/24 Pre-op Diagnosis prostate cancer, umbilical hernia Post-op Diagnosis Same (3 cm umbilical hernia) Procedure Performed Open 3 cm umbilical hernia repair with 6.[address] hernia patch Surgeon Ish Cantor, DO Anesthesia General and Local (0.5% bupivacaine with epinephrine) Indications this is a 63-year-old man who presents with a reducible umbilical hernia and prostate cancer. He had known about the hernia for several years and has become slightly larger. He was found to have a 3 cm reducible umbilical hernia on exam. Patient wanted to proceed with hernia repair at the time of robotic prostatectomy. Discussions were made with the patient about treatment options and decision was made to proceed with open 3 cm umbilical hernia repair with mesh. Findings Open 3 cm umbilical hernia repair with mesh was performed. After the conclusion of the robotic prostatectomy, I then extended the incision in the supraumbilical region to identify the hernia sac and carefully dissect this free. The hernia defect measured 3 cm. I was able to remove the prostate with the Endo-Catch bag through the hernia defect. The hernia was then repaired using a 6.[address] hernia patch. The hernia sac was excised and sent to lab for pathology. Description of Procedure Procedure as well as risks, benefits, and alternatives were discussed with the patient. Written consent was obtained and placed in chart prior to procedure. Patient was brought back to surgical suite. He was placed supine on operating table. He was then intubated by Anesthesia Department. His abdomen was prepped and draped in sterile fashion using chlorhexidine prep. 0.5% bupivacaine with epinephrine was infiltrated locally around the operative area. At the conclusion fo the robotic prostatectomy, a 5 cm curvilinear incision was made just superior to the umbilicus using a 15 blade scalpel. Electrocautery was used for hemostasis and for dissection down through the subcutaneous fat. Hernia sac was encountered and this was carefully freed up from surrounding subcutaneous fat using electrocautery. The hernia sac was freed up all the way down to the level of the fascia. The hernia sac was excised and sent to the lab for pathology. The umbilical stalk was then lifted off of the fascia with electrocautery. The Endo-Catch bag was then delivered through the hernia defect and the prostate was removed in the Endo-Catch bag through the hernia. The hernia defect was then measured. This was measuring approximately 3 cm. The decision was made to use a 6.[address] hernia patch. The mesh was then placed within the abdominal cavity and laid out flat centered on the hernia defect. The mesh appeared to be sitting in proper position. The mesh was then secured at the superior and inferior edges using 0 Ethibond transfascial sutures. The fascia was then closed over the mesh while incorporating the anterior edge of the mesh into the closure using 0 Ethibond [id number] sutures. A total of 3 sutures were placed vertically to approximate the fascia. The sutures were tied down in place.. The repair was inspected and appeared secure. 0.5% bupivacaine with epinephrine was infiltrated around the fascia and subcutaneous space. The umbilical stalk was then reapproximated to the fascia using a 3 0 Vicryl simple interrupted suture. The deep dermis was reapproximated using 3 0 Vicryl simple interrupted sutures, and then the skin was approximated using 4 Monocryl running subcuticular suture. Exofin glue was then applied on top. The patient was then awakened from anesthesia, extubated, and transferred to recovery. Implants 6.[address] hernia patch Estimated Blood Loss 2 Pathology Yes ( Hernia sac) Complications No immediate complications Condition Stable Disposition Same day [facility] Billing Surgery - Charge Forward: Surgery Billing
[2024-03-13 12:34] LABS: Glucose Point of Care 148 mg/dl (65-105)
[2024-03-13] MEDS: fentaNYL CITRATE INJ (*CRX) 100 MCG/2 ML VIAL 25 MCG IV PUSH ×5 (13:08→14:05)
--- NOTE | 2024-03-13 14:12 | SUR.PHASEI ---
This RN tried to give report to floor RN and she's at lunch and has to call back for report.
[2024-03-13] MEDS: LACTATED RINGERS 1,000 ML 125 ML IV CONT ×2 (14:44→22:50)
[2024-03-13] MEDS: MORPHINE SULFATE (*CRX) 2 MG/ML INJ 1 MG IV PUSH (14:46)
--- NOTE | 2024-03-13 15:10 | ADMGEN ---
This patient, Joe Vega, was admitted to 2 Medical Room 240-. Patient/family oriented to hospital policies and general routines including ID bracelet, bed and alarms, visiting hours, pain management, procedures, bathroom and other care routines, personal items, smoking policy, room service/diet, and visiting hours. Information on how to activate the Rapid Response Team has been discussed. Patient/Family are encouraged to report perceived risks to care and to ask questions if they do not understand what they are told or what they should do.
[2024-03-13] MEDS: metFORMIN HCL XR 500 MG TAB.SR.24H PO (16:33)
[2024-03-13] MEDS: HYOSCYAMINE SULFATE 0.125 MG TABLET SUBLINGUAL (17:44)
[2024-03-13] MEDS: KETOROLAC 30 MG/ML VIAL (*BKC) IV PUSH (18:59)
[2024-03-14] VITALS (7 sets, daily range): BP systolic 115–137; BP diastolic 54–67; PULSE 70–80; RESP 16–18; TEMP 36.3–36.8; O2SAT 94–99
[2024-03-14 05:13] LABS: Hematocrit 38.3 % (42.0-52.0); Hemoglobin 13.2 g/dL (14.0-18.0)
[2024-03-14 05:31] LABS: Anion Gap 6 mmol/L (4-12); Blood Urea Nitrogen 19 mg/dL (9-20); Calcium 8.9 mg/dL (8.4-10.2); Carbon Dioxide 27 mmol/L (22-30); Chloride 101 mmol/L (98-107); Estimated CRCL calculation 67 ml/min; Estimated Glomerular Filt Rate 51; Glucose 106 mg/dL (65-110); Sodium 134 mmol/L (137-145)
[2024-03-14] MEDS: LACTATED RINGERS 1,000 ML 125 ML IV CONT ×3 (06:43→22:34)
[2024-03-14] MEDS: metFORMIN HCL XR 500 MG TAB.SR.24H PO ×2 (08:40→16:34)
[2024-03-14] MEDS: levoFLOXacin 500 MG TABLET PO (08:40)
[2024-03-14] MEDS: KETOROLAC 30 MG/ML VIAL (*BKC) IV PUSH (08:47)
--- NOTE | 2024-03-14 09:56 | WPDUROPN2 ---
Progress Note: A&P Assessment and Plan (1) Prostate cancer: Code(s): C61 - Malignant neoplasm of prostate Status: Acute Assessment and Plan: S/p robotic assisted nerve sparing prostatectomy with left pelvic lymph node dissection on 03/13/[address] Quinones. He tolerated the procedure well. Pain well controlled at this time. Continue Roman catheter. Will plan for RAJINDER drain removal this afternoon if output remains low. Hopeful discharge this afternoon if continued improvement (2) Umbilical hernia: Code(s): K42.9 - Umbilical hernia without obstruction or gangrene Status: Acute Assessment and Plan: Underwent open umbilical hernia repair by Dr. Cantor on 03/13/2024 and tolerated well. Subjective Subjective Date/Time Seen: 03/14/24 09:56 Interval history: Joe is doing very well postoperatively. Has some abdominal bloating and pressure but this seems to be improving. Reports abdominal soreness with coughing and sitting up. He is passing flatus. He is tolerating his diet. Reports no issues with Roman catheter. Denies nausea, vomiting, fever, or chills. Review of Systems Review of Systems: All systems reviewed & are unremarkable except as noted in HPI and below Exam Narrative: General: Awake, alert, comfortable, no acute distress HEENT: Normocephalic, atraumatic, sclerae anicteric Respiratory: Normal respiratory effort, no accessory muscle use Abdomen: Nondistended, soft, nontender, abdominal incisions are clean, dry, intact : RAJINDER drain with scant serosanguineous output, Roman catheter draining clear yellow urine Skin: Normal coloration, warm and dry Neurologic: No focal neuro deficits noted Psychiatric: Appropriate mood and affect, judgment and insight intact Objective Data Vital Signs Vital Signs: Vital Signs - 24 hr 03/13/24 12:24 03/13/24 12:39 03/13/24 12:54 Temperature 98.9 F Pulse Rate 81 90 91 Respiratory Rate 15 19 16 Blood Pressure 96/49 L 128/71 132/71 Pulse Oximetry 93 94 96 Oxygen Delivery Simple Face Mask Simple Face Mask Room Air Oxygen Flow Rate 8 8 03/13/24 13:09 03/13/24 13:15 03/13/24 13:30 Temperature Pulse Rate 79 79 83 Respiratory Rate 14 14 14 Blood Pressure 103/49 L 103/49 L 113/54 L Pulse Oximetry 95 95 95 Oxygen Delivery Nasal Cannula Nasal Cannula Nasal Cannula Oxygen Flow Rate 3 3 3 03/13/24 13:50 03/13/24 14:05 03/13/24 14:20 Temperature Pulse Rate 79 84 79 Respiratory Rate 14 14 13 Blood Pressure 94/54 L 104/59 L 99/52 L Pulse Oximetry 93 95 93 Oxygen Delivery Nasal Cannula Nasal Cannula Nasal Cannula Oxygen Flow Rate 3 3 3 03/13/24 14:30 03/13/24 15:15 03/13/24 14:45 Temperature 97.2 F L 98.2 F 97.2 F L Pulse Rate 78 78 77 Respiratory Rate 20 20 20 Blood Pressure 125/63 119/61 121/60 Pulse Oximetry 96 96 96 Oxygen Delivery Oxygen Flow Rate 03/13/24 14:39 03/13/24 17:30 03/13/24 16:15 Temperature 97.1 F L Pulse Rate 76 Respiratory Rate 19 Blood Pressure 123/65 Pulse Oximetry 93 97 Oxygen Delivery Room Air Nasal Cannula Oxygen Flow Rate 3 03/13/24 20:15 03/13/24 21:26 03/13/24 20:00 Temperature 98 F Pulse Rate 94 Respiratory Rate 20 19 Blood Pressure 113/56 L Pulse Oximetry 93 Oxygen Delivery Autopap Room Air Oxygen Flow Rate 03/14/24 00:15 03/14/24 04:15 03/14/24 08:15 Temperature 97.3 F L 97.9 F 98.0 F Pulse Rate 70 74 70 Respiratory Rate 18 18 18 Blood Pressure 115/54 L 126/62 120/59 L Pulse Oximetry 95 99 95 Oxygen Delivery Oxygen Flow Rate Intake/Output Intake/Output: Intake & Output 03/11/24 03/12/24 03/13/24 03/14/24 23:59 23:59 23:59 23:59 Intake Total 1840 1575.4 Output Total 110 2100 Balance 1730 -524.6 Meds/Results Medications: Active Medications Generic Name Dose Route Start Last Admin Trade Name Freq PRN Reason Stop Dose Admin Hydrocodone Bitart/Acetaminophen 1 tab 03/13/24 14:30
--- NOTE | 2024-03-14 10:06 | WPDANESPN ---
Anes - Prog Note Post-Op Date/Time: 03/14/24 10:06 Cardiovascular status: normal Respiratory status: normal Airway patency: baseline Mental status: baseline Post-Op hydration status: normal Vital Signs: Last Vital Signs Temp 36.7 C 03/14/24 08:15 Pulse 70 03/14/24 08:15 Resp 18 03/14/24 08:40 BP 120/59 L 03/14/24 08:15 Pulse Ox 95 03/14/24 08:40 O2 Del Method Room Air 03/14/24 08:40 O2 Flow Rate 3 03/13/24 17:30 Pain Score (VAS): 2 I/O: Intake & Output 03/13/24 03/14/24 03/14/24 23:59 07:59 15:59 Intake Total 1240 1335.4 240 Output Total 1350 750 Balance 1240 -14.6 -510 Laboratory Tests 03/14/24 04:29 03/14/24 04:29 03/13/24 03/14/24 12:29 04:29 Hgb 13.2 L Hct 38.3 L Sodium 134 L Potassium 4.0 Chloride 101 Carbon Dioxide 27 Anion Gap 6 BUN 19 Creatinine 1.40 H Estim Creat Clear Calc 67 Estimated GFR 51 L Glucose 106 POC Capillary Glucose 148 H Calcium 8.9 Post-procedural complaints: none Patient Feedback: Patient satisfied with anesthetic care.
[2024-03-14] MEDS: MORPHINE SULFATE (*CRX) 2 MG/ML INJ 1 MG IV PUSH (20:00)
[2024-03-14] MEDS: HYDROcodone/acetaminophen (*CRX) 5-325 MG TABLET 2 TAB PO (21:28)
[2024-03-15] MEDS: LACTATED RINGERS 1,000 ML 125 ML IV CONT (06:20)
[2024-03-15 06:29] VITALS: BP 146/67; PULSE 85; RESP 16; TEMP 36.5; O2SAT 95
[2024-03-15 07:50] VITALS: RESP 16; O2SAT 95
[2024-03-15] MEDS: metFORMIN HCL XR 500 MG TAB.SR.24H PO (08:28)
[2024-03-15] MEDS: levoFLOXacin 500 MG TABLET PO (08:28)
[2024-03-15 10:28] VITALS: BP 152/69; PULSE 75; RESP 16; TEMP 36.5; O2SAT 98
--- NOTE | 2024-03-15 13:16 | PM.DS ---
DS: Admitting Diagnosis Discharge Date 03/15/2024 Admitting Diagnosis Prostate cancer DS: Discharge Diagnosis Discharge Diagnosis (1) Prostate cancer: Code(s): C61 - Malignant neoplasm of prostate Status: Acute (2) Umbilical hernia: Code(s): K42.9 - Umbilical hernia without obstruction or gangrene Status: Acute Assessment and Plan: Underwent open umbilical hernia repair by Dr. Cantor on 03/13/2024 and tolerated well. Will f/u with Dr. Cantor as scheduled. DS: Summary Hospital Course Hospital Course: Joe Mora is a 63 year old male with prostate cancer who presented to [facility] on 03/13/24 to undergo scheduled surgery. He underwent robotic assisted nerve sparing prostatectomy with left pelvic lymph node dissection on 03/13/[address] Quinones as well as open umbilical hernia repair by Dr. Cantor. He tolerated these procedures well and postoperative course was uneventful. He was able to ambulate without difficulty. He was tolerating his diet and passing flatus. His RAJINDER drain was removed on POD #2. He will continue canela catheter upon discharge and was provided education regarding catheter care. He will continue a course of Levaquin and was provided stool softeners and analgesics upon discharge. He has follow up with Dr. Quinones scheduled in 1 week. We reviewed expected course and all questions were answered. He is aware of follow up plans. He was overall feeling improved and felt comfortable with plans for discharge home. Status at Discharge Functional status at discharge: independent ambulation Overall status at discharge: patient is progressing back to baseline Time Spent with Patient Time attestation: Total time spent providing and/or coordinating discharge services: 40 minutes Exam Narrative: General: Awake, alert, comfortable, no acute distress HEENT: Normocephalic, atraumatic, sclerae anicteric Respiratory: Normal respiratory effort, no accessory muscle use Abdomen: Nondistended, soft, nontender, abdominal incisions are clean, dry, intact : RAJINDER drain with scant serosanguineous output, Canela catheter draining clear yellow urine Skin: Normal coloration, warm and dry Neurologic: No focal neuro deficits noted Psychiatric: Appropriate mood and affect, judgment and insight intact DS: Data Data Completed and Pending Completed studies during hospitalization: Pending at discharge 03/13/24 10:35 Surgical [PTH] Routine Surgical [PTH] Routine Surgical [PTH] Routine Discharge Plan Discharge Attending physician on discharge: Austen Quinones Discharging Clinician: Talita Valadez Patient Disposition: Home, Self-Care Activity: as tolerated Diet: regular Patient Instructions: Antibiotic Form, Canela Catheter Placement and Care (DC), Robot Assisted Laparoscopic Prostatectomy (DC) Stand Alone Forms: General Discharge Information Follow-up/Referrals: Austen Quinones MD [Physician] - 03/22/24 1:00 am Discharge Medications: New hydrocodone-acetaminophen 5-325 mg Tablet 1 tablet PO Q6H PRN (Reason: breakthrough pain) Qty: 10 0RF levofloxacin 500 mg Tablet 500 mg PO DAILY Qty: 7 0RF docusate sodium 100 mg capsule 100 mg PO BID Qty: 20 0RF Continued magnesium 250 mg tablet 250 mg PO QHS PRN (Reason: Restless Leg(S)) Patient Comments: take 1 or 2 tablets each night for restless legs cyanocobalamin (vitamin B-12) 2,500 mcg tablet 2,500 mcg PO 3XW Patient Comments: M-W- cholecalciferol (vitamin D3) 125 mcg (5,000 unit) capsule 5,000 unit PO DAILY metformin 500 mg tablet extended release 24 hr 500 mg PO BID Qty: 180 3RF hydrochlorothiazide 12.5 mg tablet 12.5 mg PO DAILY Qty: 90 3RF lisinopril 40 mg tablet 40 mg PO . q.a.m. Qty: 90 3RF Held aspirin [Aspirin Low-Strength] 81 mg Tablet,Delayed Release (Dr/Ec) 81 mg PO DAILY Hold Instructions: Resum
== END 2024-03-15 15:15 | disposition home or self-care (01) ==
LOC: ANHSURGERY 14:53 → ANH2MED 14:53
PROVIDERS: Surgery; Admitting Provider Urology; PCP Family Medicine; Visit Provider Physician Assistant
PROC: 0VT04ZZ Resection of Prostate, Percutaneous Endoscopic Approach (ICD-10-PCS; CPT 55867; principal; 2024-03-13 07:30)
PROC: (CPT 49593; 2024-03-13 07:30)
DX: C61 Malignant neoplasm of prostate (principal); K42.9 Umbilical hernia without obstruction or gangrene; E66.9 Obesity, unspecified; Z68.37 Body mass index [BMI] 37.0-37.9, adult; E78.2 Mixed hyperlipidemia; G25.81 Restless legs syndrome; G47.33 Obstructive sleep apnea (adult) (pediatric); Z99.89 Dependence on other enabling machines and devices; I10 Essential (primary) hypertension; E11.9 Type 2 diabetes mellitus without complications; Z96.653 Presence of artificial knee joint, bilateral; Z79.82 Long term (current) use of aspirin; Z79.84 Long term (current) use of oral hypoglycemic drugs; Z79.899 Other long term (current) drug therapy
CPT/HCPCS: 55866; 38571; 49593; S2900; 36415; 80048; 80053; 82948; 85014; 85018; 85025; 85610; 85730; 86850; 86900; 86901; 87086; 88302; 88304; 88305; 88309; 93005; A9270; C1781; G0378; J0690; J1100; J1171; J1885; J2003; J2250; J2270; J2405; J2704; J3010; J7030; J7120; Q9968

== ENCOUNTER 2024-03-22 11:32 | Outpatient (CLI) | payer OTHER, SELFPAY ==
--- NOTE | ~2024-03-22 | XR_ITS ---
EXAMINATION: XR cystogram DATE: 03/22/2024 12:45 INDICATION: Postrobotic prostatectomy TECHNIQUE: Water-soluble contrast was gravity-infused through the patient's Roman catheter. Multiple fluoroscopic images were obtained. Fluoroscopy exposure time was 2 minutes. The total number of images was 11. DOSE AREA PRODUCT: 56.5 Gy-cm2 COMPARISON: None. FINDINGS: No extravasation is appreciated on frontal or lateral views in the expected region of the extraperito myah bladder/urethral anastomosis. IMPRESSION: 1. No contrast extravasation, as detailed above. Reviewed, dictated and finalized at location A.
== END 2024-03-22 11:33 | disposition home or self-care (01) ==
PROVIDERS: PCP Family Medicine; Visit Provider Urology
DX: C61 Malignant neoplasm of prostate (principal)
CPT/HCPCS: 51600; 74430; Q9967

== ENCOUNTER 2024-03-22 16:28 | Outpatient (CLI) | payer OTHER, SELFPAY ==
[2024-03-22 17:05] LABS: D Dimer 2.09 ug/mL (<0.48)
== END 2024-03-22 16:29 | disposition home or self-care (01) ==
LOC: ANHLAB 16:29
PROVIDERS: PCP Family Medicine; Visit Provider Family Medicine
DX: M79.605 Pain in left leg (principal)
CPT/HCPCS: 36415; 85380

== ENCOUNTER 2024-03-29 14:02 | Outpatient (CLI) | payer OTHER, SELFPAY ==
--- NOTE | ~2024-03-29 | US_ITS ---
LEFT LOWER EXTREMITY VENOUS ULTRASOUND Ordering provider: Arthur Puckett MD History: . M79.605 - Pain in left leg . Comparison: None. FINDINGS: --COMMON FEMORAL: Patent and free of thrombus. Normal compressibility, phasic flow and augmentation. --PROXIMAL SUPERFICIAL FEMORAL: Patent and free of thrombus. Normal compressibility, phasic flow and augmentation. --DISTAL SUPERFICIAL FEMORAL: Patent and free of thrombus. Normal compressibility, phasic flow and au gmentation. --POPLITEAL: Patent and free of thrombus. Normal compressibility, phasic flow and augmentation. --POSTERIOR TIBIAL: Patent and free of thrombus. Normal compressibility, phasic flow and augmentation . Thrombosis is seen in the lesser saphenous vein. IMPRESSION: No deep vein thrombosis. Thrombosis in the left lesser saphenous vein. Reviewed, dictated and finalized at location A.
== END 2024-03-29 14:03 | disposition home or self-care (01) ==
PROVIDERS: PCP Family Medicine; Visit Provider Family Medicine
DX: I82.812 Embolism and thrombosis of superficial veins of left lower extremity (principal)
CPT/HCPCS: 93971

== ENCOUNTER 2025-05-20 02:51 | Day surgery (SDC) | payer OTHER, SELFPAY ==
[2025-05-01 12:38] VITALS: BMI 39.4
--- OUTSIDE RECORDS SUMMARY | 2025-05-20 03:10 | XMS_ITS | Clinical Summary ---
Author Organization [facility] Address [address], [address] [address] Phone Care Team Providers Care Logistics Engineering Manager Name Role Phone Arthur Puckett MD Primary Care Provider Allergies No known active allergies Medications lisinopril (PRINIVIL, ZESTRIL) 40 MG Tablet Take 40 mg by mouth daily. 10/19/2017 Active hydroCHLOROthiaz skylar 25 MG Tablet Take 25 mg by mouth daily. 10/19/2017 Active aspirin EC 81 MG Tablet Delayed Response Take 81 mg by mouth daily. Active Cyanocobalamin (VITAMIN B 12 PO) Take 1 Tab by mouth daily. Active Cholecalciferol (VITAMIN D PO) Take 1 Tab by mouth daily. Active Family History Medical History Relation Name Comments Cancer Father lung Diabetes Father Chronic Obstructive Pulmonary Disease Mother Heart Disease Mother Hypertension Mother Renal Failure Mother Cancer Paternal Grandmother breast with mets Relation Name Status Comments Father Mother Paternal Grandmother Social History Tobacco Use Types Packs/Day Years Used Date Smoking Tobacco: Never Smokeless Tobacco: Never Alcohol Use Standard Drinks/Week Comments Yes 0 (1 standard drink = 0.6 oz pur e alcohol) rarely Sex and Gender Information Value Date Recorded Sex Assigned at Not on file Legal Sex Male 10:20 PM CDT Gender Identity Not on file Sexual Orientation Not on file Last Filed Vital Signs Vital Sign Reading Time Taken Comments Blood Pressure 94/61 02/13/2018 8:30 AM CDT Pulse 94 02/13/2018 8:30 AM CDT Temperature 36 C (96.8 F) 02/13/2018 8:30 AM CDT Respiratory Rate 18 02/13/2018 8:30 AM CDT Oxygen Saturation 94% 02/13/2018 8:30 AM CDT Inhaled Oxygen Concentration - - Weight 120.2 kg (265 lb) 01/04/2018 1:00 PM CDT Height 182.9 cm (6') 01/04/2018 1:00 PM CDT Body Mass Index 35.94 01/04/2018 1:00 PM CDT Plan of Treatment Health Maintenance Due Date Last Done Comments Hepatitis C Virus (HCV) Screening 1960 TdaP Immunization 1960 Cologuard 2005 Immunochemical Fecal Occult Blood 2005 Pneumococcal Immunization (5 0+ years) (1 of 1 - PCV) 2010 Zoster Immunization (1 of 2) 2010 Influenza Immunization (#1) 2025 SARS-COV-2 Immunization ( - season) 2025 Colonoscopy 02/14/2028 02/13/2018 Colorectal Cancer Screening 02/14/2028 Respiratory Syncytial Virus (RSV) Immunization (Adult) (1 - 1-dose 75+ series) 11/20/2035 Hepatitis B Immunization Aged Out No longer eligible based on patient's age to complete this topic Human Papillomavirus (HPV) Immunization Aged Out No longer eligible b ased on patient's age to complete this topic Meningococcal Immunization (ACWY) Aged Out No longer eligible based on patient's age to complete this topic Rotavirus Immunization Aged Out No lo nger eligible based on patient's age to complete this topic Care Teams Logistics Engineering Manager Relationship Specialty Start Date End Date Arthur Puckett MD [id number] [address] PCP - General Family Medicine 12/29/17
--- OUTSIDE RECORDS SUMMARY | 2025-05-20 03:10 | XMS_ITS | Clinical Summary ---
Author Organization [facility] Address [address] [place] [id number] Care Team Providers Care Animal Surgeon Name Role Phone Arthur Puckett MD Primary Care Provider [phone] Allergies No known active allergies Medications aspirin 81 mg chewable tablet Take 1 tablet (81 mg total) by mouth daily 05/10/2016 Active aspirin 81 mg enteric coated tablet Take 1 tablet (81 mg total) by mouth daily Active hydroCHLOROthiaz skylar (HYDRODIURIL) 25 mg tablet 04/27/2016 Active lisinopriL (PRINIVIL,ZESTRI L) 40 mg tablet 04/27/2016 Act ham escitalopram (LEXAPRO) 10 mg tablet Active metFORMIN XR (GLUCOPHAGE XR) 500 mg 24 hr tablet Take 1 tablet (500 mg total) by mouth 2 (two) times a day 12/08/2023 Active Active Problems Problem Noted Date Diagnosed Date Osteoarthritis 12/16/2021 Arthralgia of left knee 09/11/2021 History of total left knee replacement 2 Immunizations Immunization Administration Dates Next Due Pfizer SARS-CoV-2 Monovalent Vaccination (12+ Yrs) PURPLE 09/07/2020,08/12/2020 Surgical History Surgery Date Site/Laterality Comments TONSILLECTOMY Medical History Medical History Date Comments Cervical disc disease Cervical stenosis (uterine cervix) Hypertension Disc disorder of lumbar region Lumbar stenosis Family History Medical History Relation Name Comments Hypertension Brother Cancer Father Diabetes Father Hypertension Maternal Grandmother COPD Mother Heart disease Mother Hypertension Mother Stroke Mother Cancer Paternal Grandmother Relation Name Status Comments Brother Father Maternal Grandmother Mother Paternal Grandmother Social History Tobacco Use Types Packs/Day Years Used Date Smoking Tobacco: Never Smokeless Tobacco: Never Tobacco Cessation:Counseling Given: Not Answered AUDIT-C Answer Date Recorded Q1: How often do you have a drink containing alc ohol? 2-4 times a month 12/05/2023 Q2: How many drinks containi ng alcohol do you have on a typical day when you are drinking? 1 or 2 12/05/2023 Frequency of Binge Drinking Not on file 12/2023 Personal Safety Answer Date Recorded Getting School Help Needed Not on file 08/13 Sex and Gender Information Value Date Recorded Sex Assigned at Not on file Legal Sex Male 1:43 PM CDT Gender Identity Not on file Sexual Orientation Not on file Last Filed Vital Signs Vital Sign Reading Time Taken Comments Blood Pressure 114/70 02/09/2024 12:50 PM CDT Pulse 56 02/09/2024 12:50 PM CDT Temperature - - Respiratory Rate - - Oxygen Saturation - - Inhaled Oxygen Concentration - - Weight 131.4 kg (289 lb 9.6 oz) 024 12:50 PM CDT Height 182.9 cm (6') 02/09/2024 12:50 PM CDT Body Mass Index 39.28 02/09/2024 12:50 PM CDT Plan of Treatment Health Maintenance Due Date Last Done Comments Colon Cancer Screening-Colonoscopy 1960 Depression Screening 1960 Hepatitis C Screening 1960 Prostate Cancer Screening-PSA 1960 DTaP/Tdap/Td Vaccine (1 - Tdap) 11/20/1971 Hepatitis B Screening 1978 Regular Well Visit/Exam 18-64 1978 Zoster Vaccine (1 of 2) 2010 Covid-19 Vaccine (3 - 2024-2 6 season) 2025 09/07/2020, 08/12/2020 Influenza Vaccine (#1) 2025 Pneumococcal vaccine <65 Aged Out No longer eligible based on patient's age to complete this topic Insurance [facility] Address: [address] [address] [place] [address] CHOICE [place] [facility] H[facility]/PPO Address: [address] [address] [place] [address] Care Teams Animal Surgeon Relationship Specialty Start Date End Date Arthur Puckett MD [id number] [address] [facility] - General 01/12/17
--- OUTSIDE RECORDS SUMMARY | 2025-05-20 03:10 | XMS_ITS | Data Portability ---
Author Organization [facility], Main Office Address [address] [place] [address] Care Team Providers Care Group Leader [employer] Name Role Phone TERENCE FRANKS Primary Care Provider TERENCE FRANKS Referring Provider Assessment Encounter Date Assessment Date Assessment LastModified by Organization Details LastModified Time 05/06/2023 05/06/2023 HPI: Patient returns. He is a 1 year follow-up from his left total knee arthroplasty. He is very happy with his knee replacement. He feels this point he is completely covered. He has been very active this last year due to the fact that having any pain knee. Physical exam: 62-year-old male alert pleasant. He is 5 ft 11 297 lb. Incision is well healed. He is walking very well today. Range of motion is from 0-135 degrees. He has excellent stability in both flexion and extension. Impression: Patient is not very well 1 year out left total knee arthroplasty. He has also had right knee replaced by us in 2020. It continues do well formed. We will plan on seeing him back in 5 years for routine x-ray surveillance or sooner if he has problems. Long-term risk infection discussed. 20 minutes was spent in treatment patient more than half of this in [id number] conversation [email or web address] Not available 05/06/2023 11:16:55 Plan of Treatment Reminders Order Date Submit Date Provider Last Modified By Organization Details Last Modified Time Details Appointments None record ed. Lab None record ed. Referral None record ed. Procedures None record ed. Surgeries None record ed. Imaging XR, knee 023 05/06/20 23 [email or web address] [facility] [place], [facility], [place], [address], 3 15:15:32 Medication Orders None record ed. Patient TargetsNo targets recorded. Patient InstructionsNo instructions recorded. Reason for Referral None Reported. Results Created Date Observation Date Name Description Value Unit Range Abnormal Flag Note LastModifiedBy Organization Detail LastModifiedTime 03/15/20 22 03/16/2022 XR, knee No observ ation record ed. [id number] [facility] [place] [address], [place], [address], 07/28/2022 12:58:54 04/28/20 22 04/19/2022 elect rene trejo am No observ ation record ed. [id number] Not Available 07/28/2022 12:58:54 05/03/20 22 05/03/2022 XR, knee No observ ation record ed. [id number] [facility] [address], [place], [address], 07/28/2022 12:58:54 06/16/19 23 XR, knee No observ ation record ed. [id number] [facility] [place] [address], [address], 07/28/2022 12:58:54 05/06/20 23 XR, knee No observ ation record ed. [email or web address] [facility] [place] [address], [address], 05/06/2023 11:15:32 Result Notes None recorded. Problems Name Problem SNOMED Code Status Onset Date Resolution Date Notes Provider Name and Address Organization Details Recorded Time History of total knee arthroplas ty 0139285338804 Active 2021 Not Available [facility] 3 12:54:30 Pain of left knee joint 8931280443124 07 Active 2021 Not Available [facility] 3 12:54:30 Osteoarthr itis 260789357 Active 2021 Not Available [facility] 3 12:54:30 History of left total knee replacemen t 1607999908933 105 Active 2021 Not Available [facility] 3 12:54:30 Problem Notes None recorded. Procedures Surgical History Date Name Laterality Status Provider Name and Address Organization Details Recorded Time Rotator cuff surgery completed Not Available [facility] 07/28/2022 12:52:25 repair of meniscus completed Not Available [facility] 07/28/2022 12:52:25 Knee Replacement completed BARTOLO Jacques [place] - [facility] [place] [facility] 05/06/2023 10:42:25 Imaging Results None recorded. Procedure Notes None recorded. Medical Equipment None Reported. Allergies No known drug allergies Medications Name Sig Start Date Stop Date Status Note LastModified by Organization Details LastModified Time celecoxib 200 mg capsule TAKE 1 CAPSULE BY MOUTH DAILY AT 8 AM 05/06 completed Not Available Not Available Not Available cyclobenzap rine 10 mg tablet TAKE 1 TABLET BY MOUTH THREE TIMES DAILY NEEDED FOR MUSCLE SPASM 06/04 completed Not Available Not Available Not Available amoxicillin 500 mg capsule TK FOUR CS PO 1 HOUR B DAPP 05/06 completed Not Available Not Available Not Available nabumetone 750 mg tablet 09/04 completed Not Available Not Available Not Available clindamycin HCl 300 mg capsule 09/04 completed Not Available Not Available Not Available polyethylen e glycol 3350 17 gram oral powder packet DISSOLVE 1 PACKET INTO LIQUID AND DRINK BY MOUTH EVERY MORNING 05/14 completed Not Available Not Available Not Available azithromyci n 250 mg tablet 09/04 completed Not Available Not Available Not Available ibuprofen 800 mg tablet 09/04 completed Not Available Not Available Not Available hydrocodone 5 mg-acetamin ophen 325 mg tablet TAKE 1 TABLET BY MOUTH EVERY 6 HOURS NEEDED FOR PAIN 01/02 completed Not Available Not Available Not Available ondansetron HCl 8 mg tablet TAKE 1 TABLET BY MOUTH EVERY 8 HOURS NEEDED FOR NAUSEA 01/02 completed Not Available Not Available Not Available meloxicam 15 mg tablet TAKE 1 TABLET BY MOUTH DAILY 05/14 completed Not Available Not Available Not Available prednisone 20 mg tablet TAKE 2 TABLETS BY MOUTH DAILY 12/16 /2022 completed Not Available Not Available Not Available acetaminoph en 500 mg tablet TAKE 2 TABLETS BY MOUTH EVERY 6 HOURS 06/04 completed Not Available Not Available Not Available butalbital- acetaminoph en-caffeine 50 mg-325 mg-40 mg tablet TAKE 1 TABLET BY MOUTH EVERY 4 TO 6 HOURS NEEDED FOR PAIN 06/04 completed Not Available Not Available Not Available ketorolac 10 mg tablet TAKE 1 TABLET BY MOUTH EVERY SIX HOURS NEEDED 01/02 completed Not Available Not Available Not Available meloxicam 7.5 mg tablet 09/04 completed Not Available Not Available Not Available amoxicillin 875 mg tablet 09/04 completed Not Available Not Available Not Available Kenalog 10 mg/mL suspension for injection In office injection administe red by the provider 03/15 completed [facility]: [phone]- [phone] Not Available Not Available Not Available benzonatate 100 mg capsule 09/04 completed Not Available Not Available Not Available cephalexin 500 mg capsule TAKE 1 CAPSULE BY MOUTH EVERY 6 HOURS 06/04 completed Not Available Not Available Not Available hydrocodone 7.5 mg-acetamin ophen 750 mg tablet 09/04 completed Not Available Not Available Not Available hydrochloro thiazide 25 mg tablet active Not Available Not Available No t Available methylpredn isolone 4 mg tablets in a dose pack FOLLOW PACKAGE DIRECTION S 01/02 completed Not Available Not Available Not Available lisinopril 40 mg tablet active Not Available Not Available Not Available amoxicillin 875 mg-potassiu m clavulanate 125 mg tablet 09/04 completed Not Available Not Available Not Available oxycodone 5 mg tablet Take 1 tablet every 4 hours by oral route. active Not Available Not Available No t Available escitalopra m 10 mg tablet active Not Available Not Available Not Available escitalopra m 20 mg tablet 01/02 completed Not Available Not Available Not Available aspirin 05/14 completed Not Available Not Available Not Available Vitamin D 2020 active Not Available Not Available Not Avai lable Hctz/Reserp ine/Hydrala zine 05/11 completed Not Available Not Available Not Available lidocaine (PF) 10 mg/mL (1 %) injection solution In office injection administe red by the provider 05/11 completed [facility]: [phone]- [phone] Not Available Not Available Not Available lidocaine (PF) 20 mg/mL (2 %) injection solution In office injection administe red by the provider 03/15 completed Not Available Not Available Not Available lidocaine (PF) 5 mg/mL (0.5 %) injection solution In office injection administe red by the provider 03/15 completed Not Available Not Available Not Available ProAir HFA 90 mcg/actuati on aerosol inhaler 09/04 completed Not Available Not Available Not Available Eliquis 2.5 mg tablet TAKE 1 TABLET BY MOUTH EVERY 12 HOURS 06/04 completed Not Available Not Available Not Available Stimulant Laxative Plus 8.6 mg-50 mg tablet TAKE 2 TABLETS BY MOUTH TWICE DAILY 05/14 completed Not Available Not Available Not Available Vitamin B12 2020 active Not Available Not Available Not Avai lable Vitals Date Recorded Body height Provider Name an d Address Organization Details Last Updated DateTime 06/04/2022 180.34 cm Not Available [facility] 3 12:53:14 Date Recorded Body height Provider Name an d Address Organization Details Last Updated DateTime 06/16/2022 180.34 cm Not Available [facility] 3 12:53:14 Date Recorded Body mass index (BMI) Body height Body weight Provider Name and Address Organization Details Last Updated DateTime 03/15/2022 41.1 kg/m2 180.34 cm 610779.75 g Not Available [facility] 07/28/2022 12:53:14 Date Recorded Body height Body mass index (BMI) Body weight Provider Name and Address Organization Details Last Updated DateTime 05/06/2023 180.34 cm 41.4 kg/m2 962557.93 g BARTOLO Caceres [place] [facility] 05/06/2023 10:44:39 Date Recorded Body height Provider Name an d Address Organization Details Last Updated DateTime 05/14/2022 180.34 cm Not Available [facility] 3 12:53:14 Social History None recorded. Functional Status Question Answer Note LastModified by Organizat ion Details LastModified Time What is your level of alcohol consumption? Occasional [id number] Information not available 07/28/2022 Mental Status None recorded. Family History Relationship Description Onset Age of this Age Resolved Age Notes LastModified by Organization Details LastModified Time Father Heart disease [id number] Not available 07/28/2022 12:52:25 Father Family history of malignant neoplasm [id number] Not available 07/28/2022 12:52:25 Father Diabetes mellitus [id number] Not available 07/28/2022 12:52:25 Mother Family history of stroke [id number] Not available 07/28/2022 12:52:25 Mother Hypertensive disorder [id number] Not available 07/28/2022 12:52:25 Mother Kidney disease [id number] Not available 07/28/2022 12:52:25 Medical History Condition Response BLINDNESS N KIDNEY STONES N MRSA N CARPAL TUNNEL SYNDROME N LUNG DISEASE/DISORDER N HISTORY OF DRUG ABUSE N RADIATION / CHEMOTHERAPY N COPD N SPORTS INJURY N ANKLE PAIN N BLOOD DISEASES N SCHIZOPHRENIA N SHINGLES N SHOULDER PAIN N DEPRESSION (INCLUDING POST ) N BOWEL PROBLEMS N STROKE/TIA N ULCERS N KNEE PAIN N BENIGN PROSTATIC HYPERPLASIA N OBESITY N GERD/NAUSEA N ANEURYSM N URINARY/BLADDER/KIDNEY PROBLEMS N CORONARY ARTERY DISEASE (CAD) N ADDICTION CONCERNS N USE OF BLOOD THINNERS N SKIN PROBLEMS N EMPHYSEMA N MUSCLE,JOINT OR BONE PROBLEMS N DVT N STOMACH ULCERS N BLOOD CLOTS N USE OF NSAIDS N CONCUSSION OR SPINAL TRAUMA N NEUROPATHY N AIDS/HIV N FRACTURES N HYPERTENSION Y ELBOW PAIN N TOURETTE'S N Metal allergy N ANXIETY DISORDER N BLOOD TRANSFUSION N ANEMIA/BLOOD DISORDER N BIPOLAR DISORDER N BRONCHITIS N OSTEOARTHRITIS N TUBERCULOSIS N FOOT PROBLEM N HEART VALVE DISORDERS N ALLERGIES/HAYFEVER N SOFT TISSUE INJURY N INFECTIOUS DISEASE N HEART ARRHYTHMIA N INSOMNIA N HIGH CHOLESTEROL / HYPERLIPIDEMIA N RHEUMATOID ARTHRITIS N EDEMA N CHRONIC PAIN SYNDROME N CAROTID BLOCKAGE N BACK / NECK PROBLEMS N HAVE YOU BEEN HOSPITALIZED OR SEEN IN [facility] IN THE PAST YEAR ? N BURSITIS N HERNIATED DISC N DIALYSIS N FIBROMYALGIA N OSTEOPOROSIS N ARTHRITIS Y NO SIGNIFICANT PAST MEDICAL HISTORY N PERIPHERAL NEUROPATHY N DIABETES, TYPE N HEARTBURN / REFLUX N HEPATITIS / LIVER DISEASE N GOUT N ALZHEIMER'S DISEASE N SLEEP DISORDER N HERPES N HEADACHES/MIGRAINES N SEIZURES/EPILEPSY N VASCULAR DISEASE N Blood Disorder N HIP PAIN N DIZZINESS N HEAD TRAUMA OR INJURY N HEART DISEASE/HEART PROBLEMS N MULTIPLE SCLEROSIS N CANCER: SPECIFY N CARDIAC ARRHYTHMIA N ANESTHESIA COMPLICATIONS N ATRIAL FIBRILLATION N AUTOIMMUNE DISEASE N Past Encounters Encounter ID Performer Location Encounter Start Date Encounter Closed Date Diagnosis/Indication Diagnosis SNOMED-CT Code Diagnosis ICD10 Code Diagnosis IMO Codes Diagnosis Note [id number] MD BC [facility] [place] [address] [place], [place] [address] 01/02/2021 00:00:00 01/04/2021 14:45:28 [id number] Luis Kincaid MD [facility] [place] [address] [place] [address] 03/04/2021 00:00:00 03/15/2021 15:07:32 [id number] MD ARABELLA [facility] [place] [address] [place] [address] 05/11/2021 00:00:00 05/17/2021 15:18:33 [id number] MD [facility] [place] [address] [place] [address] 06/19/2021 00:00:00 06/19/2021 10:24:36 [id number] MD [facility] [place] [address] [place] [address] 07/06/2021 00:00:00 07/06/2021 18:10:02 [id number] Luis Kincaid MD [facility] [place] [address] [place] [address] 07/20/2021 00:00:00 07/20/2021 15:49:51 [id number] Luis Kincaid MD [facility] [place] [address] [place] [address] 09/11/2021 00:00:00 09/11/2021 10:54:33 [id number] MD [facility] [place] [address] [place] [address] 12/16/2021 00:00:00 12/16/2021 10:16:37 [id number] Luis Kincaid MD [facility] [place] [address] [place] [address] 03/15/2022 00:00:00 03/21/2022 18:57:17 [id number] Luis Kincaid MD [facility] [place] [address] [place] [address] 05/14/2022 00:00:00 05/14/2022 11:48:57 [id number] Luis Kincaid MD [facility] [place] [address] [place] [address] 06/04/2022 00:00:00 06/04/2022 10:12:38 [id number] Luis Kincaid MD [facility] [place] [address] [place] [address] 06/16/2022 00:00:00 06/16/2022 11:40:30 [id number] Luis Kincaid MD [facility] [place] [address] [place] [address] 05/06/2023 10:13:07 05/06/2023 11:39:00 History of left total knee replacement 3097508059 [id number] Z96.652 Health Concerns Section Related Observation LastModified by Organization Detai ls LastModified Time None Recorded Concern Status LastModified by Organization Details LastModified Time None Recorded Advance Directives Directive None Recorded Payers Insurance Date Sequence Insurance Name Policy Number Policy Wilhelm Covered Member ID Wilhelm Member ID Guarantor Name 05/12/2023 1 [facility] [id number] Joe Vega [id number] Joe Vega 05/06/2023 1 [facility] [id number] Joe Vega [id number] Joe Vega
[2025-05-20 12:28] VITALS: BP 129/75; PULSE 66; RESP 18; TEMP 36.1; O2SAT 97; BMI 39.2
[2025-05-20] MEDS: LACTATED RINGERS 1,000 ML 150 ML IV CONT (12:44)
--- NOTE | 2025-05-20 13:04 | P.PNAN_ITS ---
Anes - Initial Pre Proc Eval Procedure: Operation Date: 05/20/25 13:30 Proposed Procedures p Screening Colonoscopy - Faraz Bui MD Date/Time: 05/20/25 13:04 Surgeon: Faraz Bui MD Pre Op Diagnosis: Personal history of colon polyps, unspecified Patient Data Age: 64 Gender: M Height: 1.83 m Weight: 131.4 kg Last Vital Signs Temp 36.1 C L 05/20/25 12:28 Pulse 66 05/20/25 12:28 Resp 18 05/20/25 12:28 BP 129/75 05/20/25 12:28 Pulse Ox 97 05/20/25 12:28 O2 Del Method Room Air 05/20/25 12:28 Allergies Allergy/AdvReac Type Severity Reaction Status Date / Time Adhesive Glue Allergy Intermediate Rash Uncoded 05/01/25 12:50 Home Medications ?Medication ?Instructions ?Recorded ?Confirmed ?Type cyanocobalamin (vitamin B-12) 2,500 mcg PO DAILY 02/2405/20/25 History 2,500 mcg tablet cholecalciferol (vitamin D3) 125 5,000 unit PO DAILY 1 06/01/20 05/20/25 History mcg (5,000 unit) capsule lisinopril 40 mg tablet 40 mg PO . q.a.m. #90 tabs 0 10/08/24 05/20/25 Rx metformin 500 mg tablet,extended 500 mg PO BID #180 ta bs 10/08/24 05/20/25 Rx release 24 hr hydrochlorothiazide 12.5 mg tablet 12.5 mg PO DAILY #9 0 tabs 12/20/24 05/20/25 Rx aspirin 81 mg tablet 81 mg PO DAILY 03/20/2504/30 History escitalopram oxalate 10 mg tablet 10 mg PO DAILY #90 t abs 04/29/25 05/20/25 Rx (Lexapro) Laboratory Tests 05/20/25 12:36 POC Capillary Glucose 104 mg/dl (65-105) Patient hx anesthesia problems: none Family hx anesthesia problems: none Results Review: All pre-operative results and documents have been reviewed as part of the pre- operative evaluation. [facility] Past Medical History Medical History Colon polyp Cataract, left eye Infectious colitis Colitis Chronic depression Recurrent Anemia (06/09/21) hemoglobin 12.0 with hematocrit 35.0 on 06/09/2021. Hemoglobin normal at 14.7 on 12/25/2021. hemoglobin 14.8, iron 86 with 25% saturation and ferritin a 91 on 10/22/2022.Hemoglobin 15.9 on 05/10/2023. Acute non-recurrent maxillary sinusitis Acute superficial venous thrombosis of left lower extremity (~03/21/24) Leg pain, left D-dimer positive at 2.09 on 03/22/2024. Superficial vein thrombosis left lesser saphenous vein on Doppler 03/29/2024. Diabetes Adenocarcinoma of prostate (~11/2023) 9 of 15 samples positive biopsy November,. MRI of the prostate with no adenopathy. Robotic assisted prostatectomy 03/13/2025. Nail fungus bilateral great toes, 100% Increased stool volume Encounter for screening colonoscopy (~2017) 02/28/2014, colonoscopy 02/13/[address] Samson. Chronic low back pain with right-sided sciatica (~01/2022) x-ray of the lumbar spine on 02/18/2022 reveals severe degenerative disc disease at L5-S1. MRI 09/30/2023 with severe degenerative spondylosis at L2- L3 and L3-L4 With severe spinal canal stenosis. Elevated PSA, less than 10 ng/ml (05/10/23) PSA elevated on 05/10/2023 at 4.3, increased from 2.7. PSA 4.3 with free PSA 10.2% on 08/09/2023. Left foot pain (~2022) X-ray of the left foot on 08/09/2022 with severe osteoarthritis 1st MTP joint with bunion and posterior heel spur and loss of longitudinal arch. Left knee DJD Mid-back pain, acute BMI 38.0-38.9,adult Obesity (BMI 30-39.9) New onset headache (~12/2021) secondary to prednisone Muscle strain Back Pain Restless legs syndrome iron 110 with 35% saturation and ferritin 79 on 12/25/2021. Ferritin normal at 91 on 10/22/2022. Mixed hyperlipidemia (03/26/21) total cholesterol 179, triglycerides 354, HDL 31 and LDL 89 on 03/26/2021. Total cholesterol 165, triglycerides 190, HDL 34, LDL 98 on 06/15/2022. Total cholesterol 170, triglycerides 183, HDL 36, LDL 102 on 10/22/2022. Cholesterol 180, triglycerides 431, HDL 30, LDL 81 on 05/10/2023. Cholesterol 191, triglycerides 146, HDL 39, LDL 126 on 08/09/2023.Cholesterol 157, triglycerides 196, HDL 31, LDL 92 on 11/30/2023. cholesterol 167, triglycerides 153, HDL 35, LDL 105 on 07/04/2024 Symptomatic varicose veins of both lower extremities Fatigue Acute superficial venous thrombosis of right lower extremity Degenerative arthritis of knee, bilateral bilateral total knee replacement Hypertension Arthritis Pain in right knee Umbilical hernia without obstruction and without gangrene Surgical repair 03/13/2025. Encounter for wellness examination in adult Encounter for prostate cancer screening PSA 2.4 03/26/2021, increased from 1.9. PSA 2.7 on 06/15/2022. PSA elevated at 4.3 on 05/10/2023. Chronic pain of left knee Essential (primary) hypertension NICOLAS on CPAP (~03/2018) CPAP at 11 cm of water pressure with nasal pillows. Renal and ureteric calculus Lithotripsy and stone extraction on the left August,. Renal insufficiency renal function normal on 03/26/2021 with BUN 25, creatinine 1.1, and GFR 73 Surgical History Surgical History History of umbilical hernia repair 03/13/24 Open 3 cm umbilical hernia repair with 6.[address] hernia patch Dr. Cantor History of bilateral knee replacement H/O shoulder surgery right shoulder Family History Family History Father Diabetes mellitus, Onset Age: 79 Mother Hypertension Family history of kidney disease Family history of chronic obstructive pulmonary disease, Onset Age: 70 Social History Social History Smoking status: Never smoker Second hand tobacco smoke exposure: No Additional smoking assessment comments: PT DENIES ALL FORMS OF TOBACCO USE Alcohol intake: current Drinks per week: 6 Alcohol use details: Beer Substance use: never Substance use type: does not use Lack of Transportation: No Lack of Food: Never True Current Housing: I Have Housing Concerned About Future Housing: No Difficulty Paying Gas/Electric Bills: No Difficulty Paying for Meds: No Currently Unemployed: No Education: Bachelor's Degree Difficulty w/ Childcare or Family Care: No Living arrangements: with family 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Occupation/Education: occupation Gender identity (if verbalized by the patient): Male Sexual Orientation (if Verbalized by the Patient): Straight or Heterosexual Spiritual care concerns: No Anes - Eval Final PreProcedure Day of Procedure 05/20/25 13:04 Patient weight: obese Heart: regular rate and rhythm Lungs: decreased breath sounds Airway: Mallampati scale class III Neurological: alert and oriented Last oral intake: >/= 8 hours ASA classification: III Emergent: no Anesthetic plan: proceed Anesthesia type and monitoring: general GIVS and standard monitoring Results Review: All pre-operative results and documents have been reviewed as part of the pre- operative evaluation. Informed Consent: The patient's anesthetic plan and its attendant risks and benefits were discussed with the patient/family/POA. Questions were solicited and answers provided to the satisfaction of the patient/family/POA.
--- NOTE | 2025-05-20 13:20 | S_PTH ---
PATIENT: Joe Vega LOC: [facility] Sosa#:[id number] AGE/SX: 64/M ROOM: RE05/20/[address]: Faraz Bui MD : 1960 BED: DIS: 05/20/2025 SPEC #: [id number] RECD: 05/20/25 14:30 STATUS: TITUS REDilip #: [id number] JANIE: 05/20/25 13:[address]: Faraz Bui DEPT: [facility] Surgical RECD BY: Holli Cain ENTERED: 05/20/25 14:30 SP TYPE: Surgical OTHR DR: Arthur Puckett MD Tissues: A - Colon Polypectomy Procedures: Hematoxylin and Eosin Stain Gross and Microscopic Level 4
[2025-05-20 13:21] VITALS: BP 86/56; PULSE 65; RESP 16; O2SAT 93
[2025-05-20 13:31] VITALS: BP 89/57; PULSE 58; RESP 15; O2SAT 93
[2025-05-20 13:41] VITALS: BP 114/63; PULSE 62; RESP 18; O2SAT 94
== END 2025-05-20 13:51 | disposition home or self-care (01) ==
PROVIDERS: PCP Family Medicine; Referring Provider Nurse Practitioner Family; Visit Provider Internal Medicine Gastroenterology
PROC: 0DJD8ZZ Inspection of Lower Intestinal Tract, Via Natural or Artificial Opening Endoscopic (ICD-10-PCS; CPT 45378; principal; 2025-05-20 13:30)
DX: Z12.11 Encounter for screening for malignant neoplasm of colon (principal); D12.4 Benign neoplasm of descending colon; K57.30 Diverticulosis of large intestine without perforation or abscess without bleeding; K64.8 Other hemorrhoids; E11.9 Type 2 diabetes mellitus without complications; E66.9 Obesity, unspecified; Z68.39 Body mass index [BMI] 39.0-39.9, adult
CPT/HCPCS: 45385; 82948; 88305; J2704; J7120